=== PATIENT | male | born 1960 | race Caucasian/White ===

== ENCOUNTER 2024-01-10 15:11 | Inpatient (IN) | payer OTHER, SELFPAY ==
[2024-01-10] VITALS (10 sets, daily range): BP systolic 110–155; BP diastolic 63–84; PULSE 88–125; RESP 12–20; TEMP 36.7–38.2; O2SAT 88–97; BMI 47.4
--- NOTE | ~2024-01-10 | CT_ITS ---
EXAMINATION: CT ABDOMEN AND PELVIS WITHOUT CONTRAST CLINICAL INFORMATION: Right upper quadrant pain, fever and jaundice. COMPARISON: None available. TECHNIQUE: Multidetector volumetric imaging was performed from the superior aspect of the liver through the pubic symphysis. Sagittal and coronal reformatted images were obtained on the technologist's workstation. This CT examination was performed using dose optimization techniques as appropriate, variously including the following: *Automated exposure control *Adjustment of mA and/or kV according to patient size (this includes techniques or standardized protocols for targeted exams where dose is matched to indication/reason for exam; i.e. extremities or head) *Use of iterative reconstruction technique DLP: 1337 mGy-cm FINDINGS: LUNG BASES: The visualized lung bases are unremarkable. LIVER, GALLBLADDER, AND BILIARY TREE: The liver is normal in size, shape, and attenuation. No focal hepatic lesion or biliary ductal dilatation is present. The gallbladder contains a single 4 mm stone. The common bile duct is mildly prominent in size measuring about 0.9 cm. In the second portion of the duodenum, there is a small rounded calcification seen measuring 4 mm in size which is identical to the gallbladder calculus. It is possible that this could be within the papilla of Vater which is possibly edematous and projects into the duodenum. Alternatively, this could be a gallstone which has just passed through the papilla of Vater. PANCREAS: There is subtle stranding around the pancreas (2:35). This suggests subtle pancreatitis which could have been associated with the above-mentioned possible distal ampullary stone. No pancreatic masses or drainable fluid collections are seen. SPLEEN: Spleen is enlarged at 13.6 cm. ADRENAL GLANDS: Unremarkable. KIDNEYS AND URETERS: The kidneys are normal in size, shape, and attenuation. No hydronephrosis, hydroureter, or calculi seen. No perinephric stranding. BLADDER: Unremarkable. GASTROINTESTINAL TRACT: The small and large bowel are unremarkable. The appendix is unremarkable. ABDOMINAL WALL: No significant hernia is appreciated. Small periumbilical hernia seen containing only fat. LYMPH NODES: No retroperitoneal lymphadenopathy. VASCULAR: Unremarkable. PELVIC VISCERA: The prostate and seminal vesicles are unremarkable. OSSEOUS STRUCTURES: Degenerative changes are present in the spine, most marked at L3-L4 and L5-S1. CT/CT abdomen pelvis wo IV con IMPRESSION: 1. Cholelithiasis with single 4 mm gallstone with mild dilatation of the common bile duct. 2. There is a 4 mm calcification in the second portion of the duodenum which is identical to the gallbladder calculus. It is possible that this could be within the papilla of Vater which could be edematous, projecting into the duodenum. Alternatively, this could be a gallstone which has just passed through the papilla of Vater. 3. There is subtle stranding around the pancreas suggesting subtle pancreatitis which could have been associated with the above-mentioned possible ampullary stone. 4. Other incidental findings as described above. Fleischner guidelines were followed.
--- NOTE | ~2024-01-10 | XR_ITS ---
EXAMINATION: XR CHEST CLINICAL INFORMATION: Chest pain. COMPARISON: None available. TECHNIQUE: Frontal view of the chest was obtained. FINDINGS: The cardiac silhouette is normal in size. There is a very subtle right lower lobe opacity. Developing pneumonia cannot be excluded. The left lung is clear. There is no pleural effusion. No pneumothorax. No acute osseous abnormality. XR/XR chest 1V IMPRESSION: There is a very subtle right lower lobe opacity for which developing pneumonia is not excluded.
--- NOTE | ~2024-01-10 | US_ITS ---
EXAMINATION: US ABDOMEN LIMITED CLINICAL INFORMATION: Increased LFT. COMPARISON: None available. TECHNIQUE: Real-time imaging of the right upper quadrant abdominal viscera. FINDINGS: PANCREAS: Pancreas not well visualized obscured by bowel gas. LIVER: Increased echogenicity of the liver parenchyma, this can be seen in the setting of hepatic steatosis or liver parenchymal disease. The liver is normal in size. The liver contour is normal. No focal hepatic lesion. There is no intrahepatic biliary duct dilatation seen. GALLBLADDER: Gallbladder is distended there is thickening of the gallbladder wall measuring up to 5 mm, there is a stone lodged in the gallbladder neck 7 mm. Combined with tenderness pressing on the gallbladder raising suspicion for acute cholecystitis. COMMON BILE DUCT: Dilated in caliber measuring 1.270 cm in diameter. RIGHT KIDNEY: Normal. No hydronephrosis. No renal calculi or focal parenchymal lesions. The kidney measures 12.2 cm in maximum dimension. FREE FLUID: None. US/US abdomen limited IMPRESSION: 1. Distended gallbladder, there is gallbladder wall thickening and a 7 mm stone lodged in the gallbladder neck concerning for ACUTE CHOLECYSTITIS. 2. Dilated common bile duct measuring up to 1.2 cm. 3. Pancreas not well visualized obscured by bowel gas. 4. Increased echogenicity of the liver parenchyma, this can be seen in the setting of hepatic steatosis or liver parenchymal disease. (Referring physician staff is being called, by physician staff assistance, to be alerted of the above critical findings and recommendations.) 01/11/2024 4:12 PM MAURICE
--- NOTE | 2024-01-10 15:39 | ECG_ITS ---
Test Reason : CP Blood Pressure : / mmHG Vent. Rate : 120 BPM Atrial Rate : 120 BPM P-R Int : 156 ms QRS Dur : 078 ms QT Int : 314 ms P-R-T Axes : 007 -27 007 degrees QTc Int : 443 ms Sinus tachycardia Inferior infarct , age undetermined Abnormal ECG No previous ECGs available Referred By: Jesusita Alatorre Electronically Signed By:Jaziel Peters
[2024-01-10] MEDS: 0.9 % Sodium Chloride 1,000 ML 999 ML IVCONT ×2 (15:53→17:57)
[2024-01-10 16:06] LABS: Hematocrit 45.2 % (42.0-52.0); Hemoglobin 15.3 g/dl (14.0-18.0); Mean Corpuscular HGB Conc 33.8 g/dl (31.0-36.0); Mean Corpuscular Hemoglobin 29.9 pg (27.0-33.0); Mean Corpuscular Volume 88.5 fL (80.0-98.0); Mean Platelet Volume 9.2 fL (9.4-12.4); Platelet Count 192 X10*3/uL (160-400); Red Blood Count 5.11 X10*6/uL (4.60-5.80); Red Cell Distribution Width 14.4 % (11.0-16.0)
[2024-01-10 16:12] LABS: INTERNATIONAL NORM RATIO 1.1 (0.9-1.1); Prothrombin Time 13.9 SEC (11.1-13.3)
--- NOTE | 2024-01-10 16:12 | ED.ABDPAIN ---
HPI - Abdominal Pain General Chief Complaint: Abdominal Pain Stated Complaint: CP x4 days, twisting of stomach and L back pain Time Seen by Provider: 01/10/24 15:57 Source: patient, EMS and old records reviewed Mode of arrival: EMS Limitations: no limitations History of Present Illness ED Provider: TOPHER HPI narrative: 63 yo male with PMH of HTN, resting tremors, HLD, obesity reports Saturday had n/v in the middle of the night has had worsening RUQ and R kidney pain as well. He notes since then one episode of diarrhea, worsening pain, not able to eat or drink and pain localized to RUQ. He does not know if he has issues with his gallbladder was not aware he had yellow tinge to his eyes. [facility] MD elicited complaint: abdominal pain Pertinent past history: none Onset (ago): day(s) (Saturday ) Pain Consistency: constant Location: RUQ Severity: severe Quality: stabbing Radiation: none Migration to: R flank Exacerbating factors: eating and movement Relieving factors: nothing Associated symptoms: nausea, vomiting, diarrhea, fever and chills Related Data Allergies Allergy/AdvReac Type Severity Reaction Status Date / Time Penicillins Allergy Severe Anaphylaxis Verified 01/10/24 15:39 Review of Systems Review of Systems Constitutional : No Weight loss, pos Fever, pos Chills ENT/Mouth : No sore throat, No Rhinorrhea Eyes: No Swelling, No Redness Cardiovascular : No Chest Pain, No SOB, NoEdema Respiratory : No Cough, No Sputum, No Wheezing Gastrointestinal : Positive Nausea, Positive Vomiting, positive Diarrhea, positive abdominal Pain, No Hematochezia, No Melena Genitourinary : No Dysuria, No Urinary Frequency, No Hematuria, No Urgency Musculoskeletal : No joint pain, No Myalgias, No Joint Swelling Skin : No Skin Lesions, No rash Neuro : No Weakness, No Numbness, No Dizziness, No Headache Psych : No Anxiety/Panic, No Depression All other systems reviewed and are negative. [facility] Past Medical History Attestation statement: The following information was validated with the patient. Source: old records reviewed Medical History Occasional tremors Hyperlipidemia Obesity HTN (hypertension) Social History Social History Smoked in Last 30 Days: Yes Use of substances other than those prescribed or required for medical reasons: No Advance Directives: No Advance Directives Information Provided: No Physical Exam ED Vital Signs: Vital Signs - 24 hr 01/10/24 15:38 01/10/24 16:10 01/10/24 17:42 Temperature 100.8 F H 98.7 F Pulse Rate 125 H 122 H Respiratory Rate 18 20 Blood Pressure 155/84 H 110/63 Pulse Oximetry 94 92 96 Oxygen Delivery Method Room Air Room Air Nasal Cannula Oxygen Flow Rate 2 01/10/24 17:58 01/10/24 19:48 Temperature 98.9 F 98.4 F Pulse Rate 115 H 99 Respiratory Rate 18 19 Blood Pressure 116/65 143/68 H Pulse Oximetry 95 96 Oxygen Delivery Method Nasal Cannula Nasal Cannula Oxygen Flow Rate 2 2 BMI result Body Mass Index 47.4 Appearance: Alert. Oriented X3. in pain mild acute distress. Eyes: Pupils equal, round and reactive to light. scleral icterus ENT: Pharynx dry MM Neck: Normal inspection. Neck supple. CVS: tachycardic heart rate and rhythm. Pulses normal. Respiratory: No respiratory distress. Breath sounds normal. Abdomen: Soft and moderate RUQ ttp with + medellin's sign Skin: Skin warm and dry. Normal skin color. Jaundice Extremities: No lower extremity edema. Neuro: Oriented X 3. No motor deficit. No sensory deficit. Course Course Course Narrative: PATIENT IS OBESE IBW = 64 KG 30CC/KG = 1920 mL bolus 2 L of IVF ordered Reevaluation(s) Reevaluation #1: focused exam for sepsis performed at 843pm Medical Decision Making Medical Decision Making MDM Narrative: 63 yo male with PMH of HTN, resting tremors, HLD, obesity here with RUQ pain, jaundice and fevers at this time concern for cholecystitis, choledocholithiasis, pancreatitis, IVF x 2L, given fever empiric IV levofloxacin and flagyl ordered (reports severe PCN allergy), IV morphine for pain, pending imaging discussion with either GI and surgery/hospitalist. Differential Diagnosis Differential Diagnoses: The differential diagnosis associated with the presentation includes cholecystitis, choledocholithiasis, pancreatitis, Admission/Observation Consideration of admission/observation: Escalation of care including admission/observation considered admit given clinical picture and illness - will need MRC Consult Healthcare Provider Management of the patient was discussed with: Hospitalist (will admit) and Road Machinery Inspector (message sent to Darryl daniels [facility] possibly passed stone) Lab Data MDM Lab Attestation statement: I reviewed the patient's lab results. 01/10/24 15:52 01/10/24 15:52 Labs: Lab Results 01/10/24 01/10/24 01/10/24 Range/Units 15:52 16:03 19:20 WBC 5.0 (4.8-10.8) X10*3/uL RBC 5.11 (4.60-5.80) X10*6/uL Hgb 15.3 (14.0-18.0) g/dl Hct 45.2 (42.0-52.0) % MCV 88.5 (80.0-98.0) fL MCH 29.9 (27.0-33.0) pg MCHC 33.8 (31.0-36.0) g/dl RDW 14.4 (11.0-16.0) % Plt Count 192 (160-400) X10*3/uL MPV 9.2 L (9.4-12.4) fL Immature Gran % (Auto) Cancelled Neut % (Auto) Cancelled Lymph % (Auto) Cancelled [place] % (Auto) Cancelled Eos % (Auto) Cancelled Baso % (Auto) Cancelled Lymph # (Auto) Cancelled [place] # (Auto) Cancelled Eos # (Auto) Cancelled Baso # (Auto) Cancelled Abs Immat Gran (auto) Cancelled Absolute Neuts (auto) Cancelled Absolute Nucleated RBC 0.000 (0.0-0.012) X10*3/uL Nucleated RBC % (auto) 0.0 (0.0-0.2) /100WBC Neutrophils % (Manual) 81 H (45-73) % Band Neutrophils % 13 H (3-5) % Lymphocytes % (Manual) 6 L (20-40) % Abs Neuts (Manual) 4.7 (2.0-8.3) X10*3/uL Lymphocytes # (Manual) 0.3 L (1.2-4.9) X10*3/uL Platelet Estimate NORMAL (NORMAL) Plt Morphology Comment NORMAL RBC Morphology NOTED Qing Cells 1+ (0-2) /OIF Smear Tech's Comments MANUAL DIFF PT 13.9 H (11.1-13.3) SEC INR 1.1 (0.9-1.1) Sodium 138 (135-145) mmol/L Potassium 3.7 (3.3-5.1) mmol/L Chloride 98 (96-108) mmol/L Carbon Dioxide 26 (22-29) mmol/L Anion Gap 18 (12-20) BUN 23 H (9-16) mg/dL Creatinine 1.81 H (0.5-1.4) mg/dL Estim Creat Clear Calc 55.4 Estimated GFR 38 Random Glucose 111 (60-115) mg/dL Lactic Acid 4.3 H* (0.5-2.0) mmol/L Lactic Acid F/U @ 2Hr 0.9 (0.5-2.0) mmol/L Calcium 9.1 (8.4-10.2) mg/dL Magnesium 2.1 (1.6-2.6) mg/dL Total Bilirubin 7.0 H (0.0-1.0) mg/dL Direct Bilirubin 5.5 H (0.0-0.5) mg/dL AST 92 H (5-37) U/L ALT 218 H (0-40) U/L Alkaline Phosphatase 107 (39-117) U/L Total Creatine Kinase 686 H (38-174) U/L Troponin I High Sens 6.0 (<3.5-35.0) ng/L Total Protein 7.2 (6.5-8.0) g/dL Albumin 4.0 (3.5-5.0) g/dL Lipase 1156 H (8-78) U/L Procalcitonin 5.14 ng/mL Influenza Type A (PCR) NEGATIVE (Negative) Influenza Type B (PCR) NEGATIVE (Negative) RSV RNA Qual (PCR) NEGATIVE (Negative) SARS-CoV-2 RNA (RT-PCR) NEGATIVE (Negative) Independent Interpretation I performed an independent interpretation of an: EKG, Plain X-Ray (?RLL opacity) and CT Scan (gallstones, pancreatitis) Interpretation: Rate: 120 Rhythm: sinus tach Dillard: left Normal P waves. Normal MANUEL. Normal QRS complex. ST T wave : no KAT, old inf infarct qTC: 443 prior studies: no acute ischemia The study has been interpreted contemporaneously by me. . Radiology Impression Discussion of test interpretation with radiology: I have reviewed the radiologist's reading. Independent Historian Clinical information obtained from an independent historian. History obtained from or confirmed by: EMS Medications Administered Discontinued Medications Generic Name Dose Route Start Last Admin Trade Name Paige PRN Reason Stop Dose Admin Acetaminophen 650 mg 01/10/24 15:55 01/10/24 16:17 Acetaminophen 325 Mg Tablet PO 01/10/24 15:56 650 mg ONCE ONE Administration Sodium Chloride 1,000 mls @ 999 mls/hr 01/10/24 15:45 01/10/24 17:57 Ns IVCONT 01/10/24 17:45 999 mls/hr .Q1H1M KAREN Administration Levofloxacin 750 mg in 150 mls @ 100 mls/hr 01/10/24 15:38 01/10/24 17:57 Levaquin IV 01/10/24 17:07 Infused ONCE ONE Infusion Metronidazole 500 mg in 100 mls @ 100 mls/hr 01/10/24 16:30 01/10/24 17:57 Flagyl IV 01/10/24 17:29 Infused ONCE ONE Infusion Morphine Sulfate 4 mg 01/10/24 15:38 01/10/24 16:17 Morphine Sulfate 4 Mg/Ml Cartridge IVPUSH 01/10/24 15:39 4 mg ONCE ONE Administration Protocol Ondansetron HCl 4 mg 01/10/24 15:38 01/10/24 16:17 Ondansetron Hcl 4 Mg/2 Ml Vial IVPUSH 01/10/24 15:39 4 mg ONCE ONE Administration Critical Care Time Critical Care Time Critical Care Time: Yes Total Critical Care Time: 60 Attestation: sepsis protocol, 2L of IVF, resuscitation, repeat labs, consult, IV morphine x 2 with improvement in pain, admission I attest to this time spent taking care of the patient Discharge Plan Discharge Clinical Impression: Biliary colic, Acute cholecystitis, Acidosis, lactic, Bandemia, SOFIYA (acute kidney injury) Acute pancreatitis Qualifiers: Pancreatitis type: biliary Acute pancreatitis complication: no infection or necrosis Qualified Code(s): K85.10 - Biliary acute pancreatitis without necrosis or infection Patient Disposition: Admitted As Inpatient
[2024-01-10] MEDS: levoFLOXacin/D5W 750 MG/150 ML PIGGYBACK 100 MG IV ×2 (16:16→20:49)
[2024-01-10] MEDS: Morphine Sulfate 4 MG/ML CARTRIDGE IVPUSH ×2 (16:17→20:48)
[2024-01-10] MEDS: ondansetron HCL 4 MG/2 ML VIAL IVPUSH (16:17)
[2024-01-10] MEDS: Acetaminophen 325 MG TABLET 650 MG PO (16:17)
[2024-01-10 16:21] LABS: Lactic Acid 4.3 mmol/L (0.5-2.0)
[2024-01-10 16:31] LABS: Alanine Aminotransferase 218 U/L (0-40); Alkaline Phosphatase 107 U/L (39-117); Anion Gap 18 (12-20); Aspartate Amino Transferase 92 U/L (5-37); Bilirubin Direct 5.5 mg/dL (0.0-0.5); Blood Urea Nitrogen 23 mg/dL (9-16); Calcium 9.1 mg/dL (8.4-10.2); Carbon Dioxide 26 mmol/L (22-29); Chloride 98 mmol/L (96-108); Creatinine Clr Calc Pharmacy 55.4; Estimated Glomerular Filt Rate 38; Glucose Random 111 mg/dL (60-115); Lipase 1156 U/L (8-78); Magnesium 2.1 mg/dL (1.6-2.6); Potassium 3.7 mmol/L (3.3-5.1); Sodium 138 mmol/L (135-145); Total Protein 7.2 g/dL (6.5-8.0)
[2024-01-10 16:51] LABS: Influenza A PCR NEGATIVE (Negative); Influenza B PCR NEGATIVE (Negative); Resp Syncy Virus RNA Qual PCR NEGATIVE (Negative); SARS COV2 PCR INHOUSE NEGATIVE (Negative)
[2024-01-10] MEDS: metroNIDAZOLE/NS 500 MG/100 ML PIGGYBACK 100 MG IV ×2 (16:51→21:01)
[2024-01-10 17:06] LABS: SLIDE REVIEW MANUAL DIFF
[2024-01-10 17:13] LABS: Neutrophils Percent Manual 81 % (45-73)
[2024-01-10 17:16] LABS: Band Neutrophils Percent 13 % (3-5); Burr Cells 1+ (0-2) /OIF; Lymphocytes Absolute Manual 0.3 X10*3/uL (1.2-4.9); Lymphocytes Percent Manual 6 % (20-40); Neutrophils Absolute Manual 4.7 X10*3/uL (2.0-8.3)
[2024-01-10 17:21] LABS: Platelet Estimate NORMAL (NORMAL); Platelet Morphology Comment NORMAL; RBC Morphology NOTED
--- NOTE | 2024-01-10 17:41 | PC.NURSE ---
88% on RA while sleeping, placed on 2 liters sating 96%
[2024-01-10 17:57] LABS: Reflex Lactate? Lactic Acid Added
[2024-01-10 19:12] LABS: Procalcitonin 5.14 ng/mL
[2024-01-10 19:39] LABS: ~Lactic Acid-LAB USE ONLY 0.9 mmol/L (0.5-2.0)
--- NOTE | 2024-01-10 20:27 | P.HPHOSP_ITS ---
History of Present Illness Date of Service: 01/10/24 Chief Complaint: Abdominal Pain This is a 63-year-old male with pertinent history of hypertension, mixed hyperlipidemia, essential tremor, mood disorder, obesity who presents to the emergency department for evaluation of right upper quadrant pain. Patient states upper right-sided pain began 2 days prior to presentation in the middle of the night. He had an episode of nausea and nonbloody emesis along with it. This pain was initially intermittent but now is constant, nonradiating and without any relieving factors. He has not able to tolerate any p.o. intake. Also had 1 episode of nonbloody diarrhea. No similar issue or history of gallbladder problems in the past. Has subjective fever and chills. Chest discomfort, palpitations, shortness of breath, changes in urinary habits. In the emergency department, lipase found to be elevated and imaging concerning for acute pancreatitis. Also noted to have gallstones with biliary ductal dilatation. Transaminases found to be elevated and bilirubin 7. Patient was initiated on empiric IV antibiotics in the ER. Review of Systems 2 Constitutional: Constitutional: Reports chills, Reports fever(s), Reports malaise, Reports poor appetite and Reports weakness Cardiovascular: Cardiovascular: Reports no additional cardiovascular complaints Respiratory: Respiratory: Reports no additional respiratory complaints Gastrointestinal: Gastrointestinal: Reports abdominal pain, Reports nausea and Reports vomiting Genitourinary: Genitourinary: Reports no additional male genitourinary complaints Neurologic: Reports weakness [facility] Medical History Occasional tremors Hyperlipidemia Obesity HTN (hypertension) Pertinent family history: No family history of early CAD Social History Patient Tobacco Use Status: Current everyday Tobacco user Smoked in Last 30 Days: Yes Use of substances other than those prescribed or required for medical reasons: No Advance Directives: No Advance Directives Information Provided: No Nutrition Risks: No Nutritional Risk Meds Allergies Allergy/AdvReac Type Severity Reaction Status Date / Time Penicillins Allergy Severe Anaphylaxis Verified 01/10/24 15:39 Physical Exam 2 Vital Signs and Narrative: Vital Signs: Last Vital Signs Temp 98.4 F 01/10/24 19:48 Pulse 99 01/10/24 19:48 Resp 19 01/10/24 19:48 BP 143/68 H 01/10/24 19:48 Pulse Ox 96 01/10/24 19:48 O2 Del Method Nasal Cannula 01/10/24 19:48 O2 Flow Rate 2 01/10/24 19:48 BMI result Body Mass Index 47.4 Middle-aged male lying in bed in mild distress Neck supple, no JVD Regular rate and rhythm, S1-S2 heard Regular breath sounds bilaterally, no wheezing or crackles appreciated Abdomen with epigastric and right upper quadrant tenderness, mild guarding, no rigidity, no rebound tenderness Patient is awake, alert and oriented to self, place, time and person ; no focal motor deficit Psych: Normal mood No pedal edema Results Labs 01/10/24 15:52 01/10/24 15:52 Labs: Laboratory Results - last 24 hr 01/10/24 01/10/24 01/10/24 15:52 16:03 19:20 MCV 88.5 MCH 29.9 MCHC 33.8 RDW 14.4 Plt Count 192 MPV 9.2 L Immature Gran % (Auto) Cancelled Neut % (Auto) Cancelled Lymph % (Auto) Cancelled [place] % (Auto) Cancelled Eos % (Auto) Cancelled Baso % (Auto) Cancelled Lymph # (Auto) Cancelled [place] # (Auto) Cancelled Eos # (Auto) Cancelled Baso # (Auto) Cancelled Abs Immat Gran (auto) Cancelled Absolute Neuts (auto) Cancelled Absolute Nucleated RBC 0.000 Nucleated RBC % (auto) 0.0 Neutrophils % (Manual) 81 H Band Neutrophils % 13 H Lymphocytes % (Manual) 6 L Abs Neuts (Manual) 4.7 Lymphocytes # (Manual) 0.3 L Platelet Estimate NORMAL Plt Morphology Comment NORMAL RBC Morphology NOTED Qing Cells 1+ (0-2) Smear Tech's Comments MANUAL DIFF PT 13.9 H INR 1.1 Anion Gap 18 Estim Creat Clear Calc 55.4 Estimated GFR 38 Random Glucose 111 Lactic Acid 4.3 H* Lactic Acid F/U @ 2Hr 0.9 Calcium 9.1 Magnesium 2.1 Total Bilirubin 7.0 H Direct Bilirubin 5.5 H AST 92 H ALT 218 H Alkaline Phosphatase 107 Total Creatine Kinase 686 H Troponin I High Sens 6.0 Total Protein 7.2 Albumin 4.0 Lipase 1156 H Procalcitonin 5.14 Influenza Type A (PCR) NEGATIVE Influenza Type B (PCR) NEGATIVE RSV RNA Qual (PCR) NEGATIVE SARS-CoV-2 RNA (RT-PCR) NEGATIVE Imaging Radiologist's Impressions: Impressions Chest X-Ray 01/10/24 16:07 IMPRESSION: There is a very subtle right lower lobe opacity for which developing pneumonia is not excluded. Abdomen/Pelvis CT 01/10/24 17:23 IMPRESSION: 1. Cholelithiasis with single 4 mm gallstone with mild dilatation of the common bile duct. 2. There is a 4 mm calcification in the second portion of the duodenum which is identical to the gallbladder calculus. It is possible that this could be within the papilla of Vater which could be edematous, projecting into the duodenum. Alternatively, this could be a gallstone which has just passed through the papilla of Vater. 3. There is subtle stranding around the pancreas suggesting subtle pancreatitis which could have been associated with the above-mentioned possible ampullary stone. 4. Other incidental findings as described above. Fleischner guidelines were followed. Assessment and Plan (1) Acute pancreatitis: Qualifiers: Acute pancreatitis complication: no infection or necrosis Pancreatitis type: biliary Qualified Code(s): K85.10 - Biliary acute pancreatitis without necrosis or infection Status: Acute (2) Cholangitis: Status: Acute Plan This is a 63-year-old male with pertinent history of hypertension, mixed hyperlipidemia, essential tremor, mood disorder, obesity who presents to the emergency department for evaluation of right upper quadrant pain. #. Sepsis due to gallstone pancreatitis with acute cholangitis: Initiating empiric IV antibiotics. Continue IV crystalloid resuscitation. NPO for bowel rest. Will obtain MRCP. Consulting Gastroenterology and General surgery. IV opioids p.r.n. for analgesia. Lactic acid and blood culture obtained #. Elevated transaminases and obstructive jaundice due to above #. Elevated creatinine: Unknown baseline. SOFIYA versus CKD. Monitor creatinine with crystalloid resuscitation. Avoid nephrotoxins #. Acute lactic acidosis due to sepsis #. Hypertension: Hold antihypertensives in the setting of sepsis #. Mixed hyperlipidemia: Hold statin #. Essential tremor: Propranolol once able to take p.o. #. Mood disorder: Continue home mood stabilizers once able #. Obesity: Counseled regarding diet and exercise Med rec pending DVT prophylaxis: Mechanical Full code Admit as inpatient and will require two night minimum hospital stay for IV antibiotics (as above), which is not possible in a lesser acute setting. Specialist consult pending Quality Stroke Does the patient have a stroke diagnosis?: No VTE Prior VTE?: No VTE Risk Level:: Medical - moderate - high VTE Device Contraindication: N/A - Device Ordered VTE Drug Contraindication: Treatment Not Indicated
[2024-01-10] MEDS: Lactated Ringers 1,000 ML 150 ML IVCONT (20:49)
[2024-01-11] VITALS (7 sets, daily range): BP systolic 99–155; BP diastolic 61–97; PULSE 76–86; RESP 14–20; TEMP 36.5–37.1; O2SAT 96–99; BMI 47.4
[2024-01-11 01:11] LABS: Appearance Urine Cloudy; Color Urine Dark Yellow; Glucose Urine UA Negative (Negative); Leukocyte Esterase Urine Trace (Negative); Nitrite Urine Positive (Negative); PH 5.5 (5.0-9.0); Specific Gravity - Urine 1.025 (1.005-1.025); UMIC TRIGGER UACC YES; Urine Blood Negative (Negative); Urine Ketones Trace mg/dL (Negative); Urine Protein 30 (1+) mg/dL (Neg-Trace)
[2024-01-11 01:25] LABS: Bacteria Urine None Seen (None Seen); Calcium Oxalate Crystals Urine Present; Hyaline Casts Urine 0-2 /LPF (0-2); UACC Culture Trigger YES; WBC Urine 0-5 /HPF (0-5)
--- NOTE | 2024-01-11 02:39 | PC.NURSE ---
Pt resting at the bedside. No apparent distress noted. Denies pain at this time. Monitoring is ongoing.
[2024-01-11] MEDS: Lactated Ringers 1,000 ML 150 ML IVCONT ×3 (03:42→18:36)
[2024-01-11] MEDS: metroNIDAZOLE/NS 500 MG/100 ML PIGGYBACK 100 MG IV ×3 (03:43→22:05)
[2024-01-11 06:55] LABS: MANUAL DIFF FLAG NO
[2024-01-11 06:57] LABS: Basophils Percent Auto 0.3 % (0-2); Eosinophils Absolute Auto 0.1 X10*3/uL (0.0-0.4); Eosinophils Percent Auto 1.7 % (0-4); Hematocrit 37.2 % (42.0-52.0); Hemoglobin 12.5 g/dl (14.0-18.0); Imm Gran Abs Auto 0.02 X10*3/uL (0.00-0.03); Imm Gran Pct Auto 0.3 % (0.0-0.4); Lymphocytes Absolute Auto 0.4 X10*3/uL (1.2-4.9); Lymphocytes Percent Auto 6.9 % (20-40); Mean Corpuscular HGB Conc 33.6 g/dl (31.0-36.0); Mean Corpuscular Hemoglobin 29.8 pg (27.0-33.0); Mean Corpuscular Volume 88.8 fL (80.0-98.0); Mean Platelet Volume 9.4 fL (9.4-12.4); Monocytes Absolute Auto 0.4 X10*3/uL (0.1-1.2); Monocytes Percent Auto 6.5 % (2-11); Neutrophils Absolute Auto 5.3 x10*3/uL (2.0-8.3); Neutrophils Percent Auto 84.3 % (45-73); Platelet Count 155 X10*3/uL (160-400); Red Blood Count 4.19 X10*6/uL (4.60-5.80); Red Cell Distribution Width 14.5 % (11.0-16.0); White Blood Count 6.3 X10*3/uL (4.8-10.8)
[2024-01-11 07:15] LABS: Anion Gap 13 (12-20); Blood Urea Nitrogen 16 mg/dL (9-16); Carbon Dioxide 25 mmol/L (22-29); Chloride 103 mmol/L (96-108); Estimated Glomerular Filt Rate > 60; Glucose Random 92 mg/dL (60-115); Potassium 4.2 mmol/L (3.3-5.1); Sodium 137 mmol/L (135-145)
--- NOTE | 2024-01-11 07:29 | P.PNIM_ITS ---
Subjective Subjective Date of Service: 01/11/24 Interval History: Seen in follow up for gallstone pancreatitis with sepsis and acute cholangitis Interval history: Feels slightly better. No further nausea/vomiting. Mild diffuse abd pain. Afebrile Review of Systems Review of Systems: Yes all other systems are reviewed and are negative Physical Exam 2 Vital Signs: Vital Signs: Last Vital Signs Temp 97.7 F 01/11/24 06:37 Pulse 81 01/11/24 06:37 Resp 17 01/11/24 06:37 BP 105/71 01/11/24 06:37 Pulse Ox 99 01/11/24 06:37 O2 Del Method Room Air 01/11/24 06:37 O2 Flow Rate 2 01/11/24 03:42 BMI result Body Mass Index 47.4 Constitutional - Awake and Alert, No apparent distress Eyes - PERRLA, EOMI Cardiovascular - S1S2, RRR, No edema Respiratory - Normal lung expansion, Normal respiratory effort, No respiratory distress, CTA bilaterally Gastrointestinal - obese abdomen. Diffuse ttp without guarding or rebound, negative medellin sign. ND; +BS Extremities - no calf tenderness bilaterally, no swelling Skin - Warm/Dry Neurological - Alert & oriented x3 Psychological - Appropriate affect Objective Data Active Medications Acetaminophen (Acetaminophen 325 Mg Tablet) 650 mg PO Q6H PRN PRN Reason: Pain, Mild (Pain Scale 1-3) Acetaminophen (Acetaminophen Supp 650 Mg Supp.Rect) 650 mg [place] Q6H PRN PRN Reason: Pain, Mild (Pain Scale 1-3) Lactated Ringer's (Lr) 1,000 mls @ 150 mls/hr IVCONT .Q6H40M [facility] Last Admin: 01/11/24 03:42 Dose: 150 mls/hr Documented By: IZABEL Levofloxacin (Levaquin) 750 mg in 150 mls @ 100 mls/hr IV Q24H [facility] Last Infusion: 01/10/24 22:19 Dose: Infused Documented By: IZABEL Metronidazole (Flagyl) 500 mg in 100 mls @ 100 mls/hr IV Q8H [facility] Last Infusion: 01/11/24 04:43 Dose: Infused Documented By: IZABEL Melatonin (Melatonin 3 Mg Tablet) 6 mg PO BEDTIME PRN PRN Reason: Insomnia Morphine Sulfate (Morphine Sulfate 4 Mg/Ml Cartridge) 4 mg IVPUSH Q4H PRN; Protocol PRN Reason: Pain, Severe (Pain Scale 7-10) Last Admin: 01/10/24 20:48 Dose: 4 mg Documented By: IZABEL Ondansetron HCl (Ondansetron Hcl 4 Mg/2 Ml Vial) 4 mg IVPUSH Q8H PRN PRN Reason: Nausea and Vomiting Sodium Chloride (0.9 % Sodium Chloride Flush 3 Ml Syringe) 3 ml IVFLUSH QSHIFT [facility] Last Admin: 01/11/24 00:32 Dose: Not Given Documented By: IZABEL Non-Admin Reason: IV Running Labs 01/11/24 06:19 01/11/24 06:19 Labs: Laboratory Results - last 24 hr 01/10/24 01/10/24 01/10/24 15:52 16:03 19:20 MCV 88.5 MCH 29.9 MCHC 33.8 RDW 14.4 Plt Count 192 MPV 9.2 L Immature Gran % (Auto) Cancelled Neut % (Auto) Cancelled Lymph % (Auto) Cancelled [place] % (Auto) Cancelled Eos % (Auto) Cancelled Baso % (Auto) Cancelled Lymph # (Auto) Cancelled [place] # (Auto) Cancelled Eos # (Auto) Cancelled Baso # (Auto) Cancelled Abs Immat Gran (auto) Cancelled Absolute Neuts (auto) Cancelled Absolute Nucleated RBC 0.000 Nucleated RBC % (auto) 0.0 Neutrophils % (Manual) 81 H Band Neutrophils % 13 H Lymphocytes % (Manual) 6 L Abs Neuts (Manual) 4.7 Lymphocytes # (Manual) 0.3 L Platelet Estimate NORMAL Plt Morphology Comment NORMAL RBC Morphology NOTED Qing Cells 1+ (0-2) Smear Tech's Comments MANUAL DIFF PT 13.9 H INR 1.1 Anion Gap 18 Estim Creat Clear Calc 55.4 Estimated GFR 38 Random Glucose 111 Lactic Acid 4.3 H* Lactic Acid F/U @ 2Hr 0.9 Calcium 9.1 Magnesium 2.1 Total Bilirubin 7.0 H Direct Bilirubin 5.5 H AST 92 H ALT 218 H Alkaline Phosphatase 107 Total Creatine Kinase 686 H Troponin I High Sens 6.0 Total Protein 7.2 Albumin 4.0 Lipase 1156 H Procalcitonin 5.14 Urine Color Urine Appearance Urine pH Ur Specific [place] Urine Protein Urine Glucose (UA) Urine Ketones Urine Blood Urine Nitrite Ur Leukocyte Esterase Urine RBC Urine WBC Ur Squamous Epith Cells Calcium Oxalate Crystal Urine Bacteria Hyaline Casts Influenza Type A (PCR) NEGATIVE Influenza Type B (PCR) NEGATIVE RSV RNA Qual (PCR) NEGATIVE SARS-CoV-2 RNA (RT-PCR) NEGATIVE 01/11/24 01/11/24 01:07 06:19 MCV 88.8 MCH 29.8 MCHC 33.6 RDW 14.5 Plt Count 155 L MPV 9.4 Immature Gran % (Auto) 0.3 Neut % (Auto) 84.3 H Lymph % (Auto) 6.9 L [place] % (Auto) 6.5 Eos % (Auto) 1.7 Baso % (Auto) 0.3 Lymph # (Auto) 0.4 L [place] # (Auto) 0.4 Eos # (Auto) 0.1 Baso # (Auto) 0.0 Abs Immat Gran (auto) 0.02 Absolute Neuts (auto) 5.3 Absolute Nucleated RBC 0.000 Nucleated RBC % (auto) 0.0 Neutrophils % (Manual) Band Neutrophils % Lymphocytes % (Manual) Abs Neuts (Manual) Lymphocytes # (Manual) Platelet Estimate Plt Morphology Comment RBC Morphology [place] Cells Smear Tech's Comments PT INR Anion Gap 13 Estim Creat Clear Calc 83.0 Estimated GFR > 60 Random Glucose 92 Lactic Acid Lactic Acid F/U @ 2Hr Calcium Magnesium Total Bilirubin Direct Bilirubin AST ALT Alkaline Phosphatase Total Creatine Kinase Troponin I High Sens Total Protein Albumin Lipase Procalcitonin Urine Color Dark Yellow Urine Appearance Cloudy Urine pH 5.5 Ur Specific [place] 1.025 Urine Protein 30 (1+) H Urine Glucose (UA) Negative Urine Ketones Trace Urine Blood Negative Urine Nitrite Positive H Ur Leukocyte Esterase Trace H Urine RBC 3-5 H Urine WBC 0-5 Ur Squamous Epith Cells 3-5 Calcium Oxalate Crystal Present Urine Bacteria None Seen Hyaline Casts 0-2 Influenza Type A (PCR) Influenza Type B (PCR) RSV RNA Qual (PCR) SARS-CoV-2 RNA (RT-PCR) Assessment and Plan (1) Cholangitis: Status: Acute (2) SOFIYA (acute kidney injury): Status: Acute (3) Gallstone pancreatitis: Status: Acute Plan 63-year-old male with pertinent history of hypertension, mixed hyperlipidemia, essential tremor, mood disorder, obesity admitted for further management of gallstone pancreatitis and cholangitis #Sepsis due to gallstone pancreatitis with acute cholangitis -continue IV Levaquin and Flagyl (initiated 01/09) -continue IV LR at 150 mL/hr -unable to perform MRCP due to body habitus. Discussed with Gastroenterology, await General surgery recommendations and obtain RUQ ultrasound -RUQ ultrasound ordered -general surgery consult -pain management p.r.n. with pain scale -Keep NPO for now #Severe sepsis- resolved -Initial lactic acid 4.1 (met at 1552 01/09) and SOFIYA (creat just 1.8) received IVF bolus, normalized to 0.9 #Elevated LFTs with obstructive jaundice -due to above, plan as above #Acute kidney injury -Unknown baseline, but creat 1.81 --> 1.2 -avoid nephrotoxins -continue IVF -follow renal function/lytes #Hypertension -continue amlodipine, propranolol, hydralazine. Hold hydrochlorothiazide and setting of SOFIYA #Mixed hyperlipidemia -hold statin #Essential tremor -continue propranolol #Mood disorder -continue home meds # morbid obesity with BMI greater than 47 -weight loss efforts encouraged DVT prophylaxis- Mechanical Full code Patient requires ongoing inpatient stay for continued IV antibiotics due to cholangitis with severe sepsis and will requiring ongoing IV fluid resuscitation due to gallstone pancreatitis and awaiting expert consultation Quality Stroke Does the patient have a stroke diagnosis?: No VTE Prior VTE?: No VTE Risk Level:: Medical - moderate - high VTE Device Contraindication: N/A - Device Ordered VTE Drug Contraindication: Treatment Not Indicated
[2024-01-11 07:31] LABS: Calcium 8.3 mg/dL (8.4-10.2)
[2024-01-11 07:49] LABS: Alanine Aminotransferase 141 U/L (0-40); Albumin Level 3.2 g/dL (3.5-5.0); Alkaline Phosphatase 81 U/L (39-117); Aspartate Amino Transferase 50 U/L (5-37); Bilirubin Direct 4.3 mg/dL (0.0-0.5); Bilirubin Total 5.2 mg/dL (0.0-1.0); Total Protein 5.7 g/dL (6.5-8.0)
[2024-01-11] MEDS: Morphine Sulfate 4 MG/ML CARTRIDGE IVPUSH (08:02)
[2024-01-11] MEDS: ondansetron HCL 4 MG/2 ML VIAL IVPUSH (08:02)
--- NOTE | 2024-01-11 08:08 | PHA.MEDREC ---
Pharmacy Consult ? Medication Reconciliation Pharmacy has completed the medication reconciliation. Med rec complete, spoke to [employer] [facility] for [facility] who gave me list of recently filled medications and went over this list with patient. Patient states it has been a few days without his medications because he has been sick and they have not been staying down.
[2024-01-11] MEDS: Cyanocobalamin (Vitamin B-12) 1,000 MCG TABLET 1000 MCG PO (10:31)
[2024-01-11] MEDS: Sertraline HCL 50 MG TABLET 150 MG PO (10:31)
[2024-01-11] MEDS: Cholecalciferol (Vitamin D3) 25 MCG TABLET PO (10:31)
[2024-01-11] MEDS: Atorvastatin Calcium 40 MG TABLET PO (10:31)
[2024-01-11] MEDS: amLODIPine Besylate 10 MG TABLET PO (10:31)
--- NOTE | 2024-01-11 10:42 | PC.NURSE ---
per Martha holloway for pt to go for MRCP off cardiac monitoring and off IV fluids.
--- NOTE | 2024-01-11 10:50 | PC.NURSE ---
pt off unit at this time to go to MRCP scan
[2024-01-11] MEDS: Metoclopramide HCl 10 MG/2 ML VIAL IVPUSH (12:55)
--- NOTE | 2024-01-11 14:12 | P.CONGS_ITS ---
History of Present Illness Consult details Consult date: 01/11/24 Narrative: Patient is a 63-year-old male with a significant number of comorbidities who presents with a 2 to three-day history of epigastric/upper abdominal pain. Workup including baseline labs and CT scan and an under read sonogram of the upper abdomen demonstrates cholelithiasis and choledocholithiasis. Patient has no recollection of ever having biliary symptoms in the past. Chart was reviewed and patient evaluated. Normal white count, very marked hyperbilirubinemia and elevated lipase PMFSH Past Medical History Medical History Occasional tremors Hyperlipidemia Obesity HTN (hypertension) Social History Social History Patient Tobacco Use Status: Current everyday Tobacco user Smoked in Last 30 Days: Yes Use of substances other than those prescribed or required for medical reasons: No Advance Directives: No Advance Directives Information Provided: No Nutrition Risks: No Nutritional Risk Meds Allergies Allergy/AdvReac Type Severity Reaction Status Date / Time Penicillins Allergy Severe Anaphylaxis Verified 01/10/24 15:39 Active Medications: Current Medications Acetaminophen (Acetaminophen 325 Mg Tablet) 650 mg PO Q6H PRN PRN Reason: Pain, Mild (Pain Scale 1-3) Acetaminophen (Acetaminophen Supp 650 Mg Supp.Rect) 650 mg [place] Q6H PRN PRN Reason: Pain, Mild (Pain Scale 1-3) Amlodipine Besylate (Amlodipine Besylate 10 Mg Tablet) 10 mg PO DAILY [facility]; Protocol Last Admin: 01/11/24 10:31 Dose: 10 mg Cyanocobalamin (Cyanocobalamin (Vitamin B-12) 1,000 Mcg Tablet) 1,000 mcg PO DAILY [facility] Last Admin: 01/11/24 10:31 Dose: 1,000 mcg Hydralazine HCl (Hydralazine Hcl 10 Mg Tablet) 10 mg PO TID [facility]; Protocol Last Admin: 01/11/24 12:33 Dose: Not Given Lactated Ringer's (Lr) 1,000 mls @ 150 mls/hr IVCONT .Q6H40M [facility] Last Admin: 01/11/24 10:30 Dose: 150 mls/hr Levofloxacin (Levaquin) 750 mg in 150 mls @ 100 mls/hr IV Q24H [facility] Last Infusion: 01/10/24 22:19 Dose: Infused Metronidazole (Flagyl) 500 mg in 100 mls @ 100 mls/hr IV Q8H [facility] Last Admin: 01/11/24 12:55 Dose: 100 mls/hr Melatonin (Melatonin 3 Mg Tablet) 6 mg PO BEDTIME PRN PRN Reason: Insomnia Morphine Sulfate (Morphine Sulfate 4 Mg/Ml Cartridge) 4 mg IVPUSH Q4H PRN; Protocol PRN Reason: Pain, Severe (Pain Scale 7-10) Last Admin: 01/11/24 08:02 Dose: 4 mg Naproxen (Naproxen 250 Mg Tablet) 250 mg PO BID PRN PRN Reason: Pain (Scale Score 4-6) Ondansetron HCl (Ondansetron Hcl 4 Mg/2 Ml Vial) 4 mg IVPUSH Q8H PRN PRN Reason: Nausea and Vomiting Last Admin: 01/11/24 08:02 Dose: 4 mg Propranolol HCl (Propranolol Hcl La 60 Mg Cap.Sa.24h) 60 mg PO DAILY [facility]; Protocol Last Admin: 01/11/24 12:33 Dose: Not Given Sertraline HCl (Sertraline Hcl 50 Mg Tablet) 150 mg PO DAILY [facility] Last Admin: 01/11/24 10:31 Dose: 150 mg Sodium Chloride (0.9 % Sodium Chloride Flush 3 Ml Syringe) [facility] Last Admin: 01/11/24 08:07 Dose: Not Given Trazodone HCl (Trazodone Hcl 50 Mg Tablet) 150 mg PO BEDTIME PRN PRN Reason: Sleep Vitamin D (Cholecalciferol (Vitamin D3) 25 Mcg Tablet) 25 mcg PO DAILY [facility] Last Admin: 01/11/24 10:31 Dose: 25 mcg Home Medications ?Medication ?Instructions ?Recorded ?Confirmed ?Last Taken ?Type amlodipine 10 mg tablet 10 mg PO DAILY 01/11/24 01/11/24 Unknown History atorvastatin 80 mg tablet 40 mg PO DAILY 01/11/24 01/11/24 Unknown History cholecalciferol (vitamin D3) 25 25 mcg PO DAILY 01/11/24 01/11/24 Unknown History mcg (1,000 unit) tablet (Vitamin D3) cyanocobalamin (vitamin B-12) 1,000 mcg PO DAILY 01/11/24 01/11/24 Unknown History 1,000 mcg tablet hydralazine 10 mg tablet 10 mg PO TID 01/11/24 01/11/24 Unknown History hydrochlorothiazide 25 mg tablet 25 mg PO DAILY 01/11/24 01/11/24 Unknown History naproxen 250 mg tablet 250 mg PO BID PRN Pain (Scale 01/11/24 01/11/24 Unknown History Score 4-6) propranolol 60 mg capsule,24 60 mg PO DAILY 01/11/24 01/11/24 Unknown History hr,extended release sertraline 100 mg tablet 150 mg PO DAILY 01/11/24 01/11/24 Unknown History trazodone 100 mg tablet 150 mg PO BEDTIME PRN Sleep 01/11/24 01/11/24 Unknown History Physical Exam 2 Vital Signs: Vital Signs: Last Vital Signs Temp 97.7 F 01/11/24 06:37 Pulse 83 01/11/24 08:00 Resp 17 01/11/24 08:00 BP 155/75 H 01/11/24 08:00 Pulse Ox 96 01/11/24 08:00 O2 Del Method Room Air 01/11/24 08:00 O2 Flow Rate 2 01/11/24 03:42 BMI result Body Mass Index 47.4 Const: Other: Massively corpulent patient GI: Other: Enormous abdomen. Mild epigastric tenderness. No evidence of any guarding, rebound, or rigidity. Results Labs 01/11/24 06:19 01/11/24 06:19 Labs: Abnormal lab results 01/10/24 01/11/24 01/11/24 Range/Units 15:52 01:07 06:19 RBC 4.19 L (4.60-5.80) X10*6/uL Hgb 12.5 L (14.0-18.0) g/dl Hct 37.2 L (42.0-52.0) % Plt Count 155 L (160-400) X10*3/uL MPV 9.2 L (9.4-12.4) fL Neut % (Auto) 84.3 H (45-73) % Lymph % (Auto) 6.9 L (20-40) % Lymph # (Auto) 0.4 L (1.2-4.9) X10*3/uL Neutrophils % (Manual) 81 H (45-73) % Band Neutrophils % 13 H (3-5) % Lymphocytes % (Manual) 6 L (20-40) % Lymphocytes # (Manual) 0.3 L (1.2-4.9) X10*3/uL PT 13.9 H (11.1-13.3) SEC BUN 23 H (9-16) mg/dL Creatinine 1.81 H (0.5-1.4) mg/dL Lactic Acid 4.3 H* (0.5-2.0) mmol/L Calcium 8.3 L D (8.4-10.2) mg/dL Total Bilirubin 7.0 H 5.2 H (0.0-1.0) mg/dL Direct Bilirubin 5.5 H 4.3 H (0.0-0.5) mg/dL AST 92 H 50 H (5-37) U/L ALT 218 H 141 H (0-40) U/L Total Creatine Kinase 686 H (38-174) U/L Total Protein 5.7 L (6.5-8.0) g/dL Albumin 3.2 L (3.5-5.0) g/dL Lipase 1156 H (8-78) U/L Urine Protein 30 (1+) H (Neg-Trace) mg/dL Urine Nitrite Positive H (Negative) Ur Leukocyte Esterase Trace H (Negative) Urine RBC 3-5 H (0-2) /HPF Short CBC 01/10/24 01/11/24 Range/Units 15:52 06:19 WBC 5.0 6.3 (4.8-10.8) X10*3/uL Hgb 15.3 12.5 L (14.0-18.0) g/dl Hct 45.2 37.2 L (42.0-52.0) % Plt Count 192 155 L (160-400) X10*3/uL BMP 01/10/24 01/11/24 15:52 06:19 Sodium 138 137 Potassium 3.7 4.2 Chloride 98 103 Carbon Dioxide 26 25 BUN 23 H 16 Creatinine 1.81 H 1.21 Calcium 9.1 8.3 L D Cardiac Enzymes 01/10/24 Range/Units 15:52 Total Creatine Kinase 686 H (38-174) U/L Liver Function 01/10/24 01/11/24 Range/Units 15:52 06:19 Total Bilirubin 7.0 H 5.2 H (0.0-1.0) mg/dL Direct Bilirubin 5.5 H 4.3 H (0.0-0.5) mg/dL AST 92 H 50 H (5-37) U/L ALT 218 H 141 H (0-40) U/L Alkaline Phosphatase 107 81 (39-117) U/L Albumin 4.0 3.2 L (3.5-5.0) g/dL Urine 01/11/24 Range/Units 01:07 Urine Color Dark Yellow Urine Appearance Cloudy Urine pH 5.5 (5.0-9.0) Ur Specific [place] 1.025 (1.005-1.025) Urine Protein 30 (1+) H (Neg-Trace) mg/dL Urine Glucose (UA) Negative (Negative) mg/dL All other labs normal. Assessment and Plan (1) Gallstone pancreatitis: Status: Acute (2) Cholangitis: Status: Acute (3) Cholelithiasis: Status: Acute Plan Presumptive diagnosis of cholelithiasis, choledocholithiasis, gallstone pancreatitis, and? cholangitis. Patient is undergoing restorative measures. GI consult pending. Once the patient has been fully resuscitated with continued restorative measures with serial labs and exams and laboratory values and abdominal exam improved, consideration for laparoscopic possible open cholecystectomy can be undertaken. To follow . Procedures Date of Service Date of Service: 01/11/24
[2024-01-11] MEDS: hydrALAZINE HCl 10 MG TABLET PO ×2 (16:35→20:25)
[2024-01-11] MEDS: levoFLOXacin/D5W 750 MG/150 ML PIGGYBACK 100 MG IV (20:25)
[2024-01-12] MEDS: Lactated Ringers 1,000 ML 150 ML IVCONT (03:15)
[2024-01-12 03:22] VITALS: BP 126/82; PULSE 88; RESP 20; TEMP 36.3; O2SAT 96
[2024-01-12] MEDS: metroNIDAZOLE/NS 500 MG/100 ML PIGGYBACK 100 MG IV ×2 (04:29→12:58)
--- NOTE | 2024-01-12 05:42 | PM.GICN ---
History of Present Illness Data of Consult Service Date: 01/12/24 Requesting physician: Martha Bailon Primary Care Provider: Unknown Physician HPI Reason for consult: gallstones 63-year-old male with pertinent history of hypertension, mixed hyperlipidemia, essential tremor, mood disorder, obesity who I am seeing for assessment of gallstones patient initially presented with constant non radiating, colicky pain in RUQ 10/10 in severity w/o radiation which began 2 d before presentation. Associated with non bloody emesis, nausea and poor appetite and diarrhea. He felt feverish with chills, denies Chest discomfort, palpitations, shortness of breath, changes in urinary habits. on reflection he may have had similar pains on and off in the past but never as bad Labs: admission; Transaminases found to be elevated and bilirubin 7.--came down to 5 and now 3. (he does say that today the pain is pretty much gone and he feels hungry) Imaging: CT-mild pancreatitis, stone seen in Gb also another possible stone, coronal view looks to be in the duodenum. US- stone impacted GB neck, cbd dilated. patient unable to get MRCP due to weight Review of Systems Review of Systems: Constitutional : No Weight loss, + Fever, + Chills ENT/Mouth : No sore throat, No Rhinorrhea Eyes: No Swelling, No Redness Cardiovascular : No Chest Pain, No SOB, No Edema Respiratory : No Cough, No Sputum, No Wheezing Gastrointestinal : see HPI Genitourinary : NO Dysuria, No Urinary Frequency, No Hematuria, No Urgency Musculoskeletal : + joint pain, No Myalgias, No Joint Swelling Skin : No Skin Lesions, No rash Neuro : No Weakness, No Numbness, No Dizziness, No Headache Psych : No Anxiety/Panic, No Depression Heme/Lymph: No Bruising, No Lymphadenopathy Endocrine : No Polyuria, No Polydipsia All other systems reviewed and are negative. [facility] Past Medical History Medical History Occasional tremors Hyperlipidemia Obesity HTN (hypertension) Family History Pertinent family history: no fh of liver disease or GB disease Social History Social History Household Members: None Housing: House Do you presently have visiting nurse or other home services: No Patient Tobacco Use Status: Never used Tobacco Substance Use Type: Marijuana Meds Allergies Allergy/AdvReac Type Severity Reaction Status Date / Time Penicillins Allergy Severe Anaphylaxis Verified 01/10/24 15:39 Active Medications: Current Medications Acetaminophen (Acetaminophen 325 Mg Tablet) 650 mg PO Q6H PRN PRN Reason: Pain, Mild (Pain Scale 1-3) Acetaminophen (Acetaminophen Supp 650 Mg Supp.Rect) 650 mg [place] Q6H PRN PRN Reason: Pain, Mild (Pain Scale 1-3) Amlodipine Besylate (Amlodipine Besylate 10 Mg Tablet) 10 mg PO DAILY [facility]; Protocol Last Admin: 01/11/24 10:31 Dose: 10 mg Cyanocobalamin (Cyanocobalamin (Vitamin B-12) 1,000 Mcg Tablet) 1,000 mcg PO DAILY [facility] Last Admin: 01/11/24 10:31 Dose: 1,000 mcg Hydralazine HCl (Hydralazine Hcl 10 Mg Tablet) 10 mg PO TID [facility]; Protocol Last Admin: 01/11/24 20:25 Dose: 10 mg Lactated Ringer's (Lr) 1,000 mls @ 150 mls/hr IVCONT .Q6H40M [facility] Last Admin: 01/12/24 03:15 Dose: 150 mls/hr Levofloxacin (Levaquin) 750 mg in 150 mls @ 100 mls/hr IV Q24H [facility] Last Infusion: 01/11/24 22:17 Dose: Infused Metronidazole (Flagyl) 500 mg in 100 mls @ 100 mls/hr IV Q8H [facility] Last Admin: 01/12/24 04:29 Dose: 100 mls/hr Melatonin (Melatonin 3 Mg Tablet) 6 mg PO BEDTIME PRN PRN Reason: Insomnia Morphine Sulfate (Morphine Sulfate 4 Mg/Ml Cartridge) 4 mg IVPUSH Q4H PRN; Protocol PRN Reason: Pain, Severe (Pain Scale 7-10) Last Admin: 01/11/24 08:02 Dose: 4 mg Naproxen (Naproxen 250 Mg Tablet) 250 mg PO BID PRN PRN Reason: Pain (Scale Score 4-6) Ondansetron HCl (Ondansetron Hcl 4 Mg/2 Ml Vial) 4 mg IVPUSH Q8H PRN PRN Reason: Nausea and Vomiting Last Admin: 01/11/24 08:02 Dose: 4 mg Propranolol HCl (Propranolol Hcl La 60 Mg Cap.Sa.24h) 60 mg PO DAILY [facility]; Protocol Last Admin: 01/11/24 12:33 Dose: Not Given Sertraline HCl (Sertraline Hcl 50 Mg Tablet) 150 mg PO DAILY [facility] Last Admin: 01/11/24 10:31 Dose: 150 mg Sodium Chloride (0.9 % Sodium Chloride Flush 3 Ml Syringe) 3 ml IVFLUSH QSHIFT [facility] Last Admin: 01/12/24 01:03 Dose: Not Given Trazodone HCl (Trazodone Hcl 50 Mg Tablet) 150 mg PO BEDTIME PRN PRN Reason: Sleep Vitamin D (Cholecalciferol (Vitamin D3) 25 Mcg Tablet) 25 mcg PO DAILY [facility] Last Admin: 01/11/24 10:31 Dose: 25 mcg Home Medications ?Medication ?Instructions ?Recorded ?Confirmed ?Last Taken ?Type amlodipine 10 mg tablet 10 mg PO DAILY 01/11/24 01/11/24 Unknown History atorvastatin 80 mg tablet 40 mg PO DAILY 01/11/24 01/11/24 Unknown History cholecalciferol (vitamin D3) 25 25 mcg PO DAILY 01/11/24 01/11/24 Unknown History mcg (1,000 unit) tablet (Vitamin D3) cyanocobalamin (vitamin B-12) 1,000 mcg PO DAILY 01/11/24 01/11/24 Unknown History 1,000 mcg tablet hydralazine 10 mg tablet 10 mg PO TID 01/11/24 01/11/24 Unknown History hydrochlorothiazide 25 mg tablet 25 mg PO DAILY 01/11/24 01/11/24 Unknown History naproxen 250 mg tablet 250 mg PO BID PRN Pain (Scale 01/11/24 01/11/24 Unknown History Score 4-6) propranolol 60 mg capsule,24 60 mg PO DAILY 01/11/24 01/11/24 Unknown History hr,extended release sertraline 100 mg tablet 150 mg PO DAILY 01/11/24 01/11/24 Unknown History trazodone 100 mg tablet 150 mg PO BEDTIME PRN Sleep 01/11/24 01/11/24 Unknown History Physical Exam Vital Signs: Vital Signs: Last Vital Signs Temp 97.3 F 01/12/24 03:22 Pulse 88 01/12/24 03:22 Resp 20 01/12/24 03:22 BP 126/82 01/12/24 03:22 Pulse Ox 96 01/12/24 03:22 O2 Del Method Nasal Cannula 01/12/24 03:22 O2 Flow Rate 2 01/12/24 03:22 BMI result Body Mass Index 47.4 EXAM: GENERAL: The patient is well developed and nontoxic.obese VITAL SIGNS:see workflow HEENT: +mildly icteric sclerae, PERRLA, EOMI. Oropharynx clear. Moist mucous membranes. Conjunctivae appear well perfused. No thyroid mass. CHEST: Chest wall is nontender. HEART: Regular rate and rhythm without murmurs. LUNGS: Clear to auscultation bilaterally. ABDOMEN: Soft, positive bowel sounds, mildly tender RUQ, no organomegaly.no flank tenderness SKIN: No rash, no excessive bruising, petechiae, or purpura. NEUROLOGIC: Cranial nerves II-XII intact without motor/sensory deficit. Psych: normal affect Results Labs 01/11/24 06:19 01/12/24 05:24 Labs: Short CBC 01/11/24 Range/Units 06:19 WBC 6.3 (4.8-10.8) X10*3/uL Hgb 12.5 L (14.0-18.0) g/dl Hct 37.2 L (42.0-52.0) % Plt Count 155 L (160-400) X10*3/uL BMP 01/11/24 06:19 Sodium 137 Potassium 4.2 Chloride 103 Carbon Dioxide 25 BUN 16 Creatinine 1.21 Calcium 8.3 L D Liver Function 01/11/24 Range/Units 06:19 Total Bilirubin 5.2 H (0.0-1.0) mg/dL Direct Bilirubin 4.3 H (0.0-0.5) mg/dL AST 50 H (5-37) U/L ALT 141 H (0-40) U/L Alkaline Phosphatase 81 (39-117) U/L Albumin 3.2 L (3.5-5.0) g/dL Microbiology Microbiology Results: Microbiology 01/10/24 16:03 Blood - Venous Blood Culture - Preliminary No growth after 24 hours. 01/10/24 15:52 Blood - Venous Blood Culture - Preliminary No growth after [address] scan - abdomen: Attestation: I personally reviewed and interpreted this imaging study as follows: (pancreatitis, stone in GB, distended GB and dilated CBD, ? stone in duodenum ) Assessment and Plan (1) Gallstone pancreatitis: Status: Acute (2) Cholelithiasis: Status: Acute Plan 1/ Symptomatic gallstones with gallstone pancreatitis, LFT coming down, seems may have passed a stone but has another stone impacted in the GB neck PLAN: 1/ trend LFT, if cont coming down then will hold on ERCP< can consider IOC at time of cholecystectomy, but if LFT rising then will consider ERCP prior to cholecystectomy, 2/ Low fat diet Procedures Date of Service Date of Service: 01/12/24
[2024-01-12 06:23] LABS: Alanine Aminotransferase 102 U/L (0-40); Alkaline Phosphatase 94 U/L (39-117); Anion Gap 12 (12-20); Aspartate Amino Transferase 42 U/L (5-37); Bilirubin Direct 2.3 mg/dL (0.0-0.5); Bilirubin Total 2.8 mg/dL (0.0-1.0); Blood Urea Nitrogen 13 mg/dL (9-16); Calcium 8.2 mg/dL (8.4-10.2); Carbon Dioxide 22 mmol/L (22-29); Chloride 105 mmol/L (96-108); Creatinine Clr Calc Pharmacy 99.4; Estimated Glomerular Filt Rate > 60; Glucose Random 97 mg/dL (60-115); Potassium 4.1 mmol/L (3.3-5.1); Sodium 135 mmol/L (135-145); Total Protein 5.6 g/dL (6.5-8.0)
--- NOTE | 2024-01-12 07:32 | HO.PM.IMPN ---
Subjective Subjective Date of Service: 01/12/24 Interval History: Seen in follow up for gallstone pancreatitis with sepsis and acute cholangitis Interval history: Feels slightly better. Had some nausea yesterday without vomiting. Tolerated clears. LFTs trending down. No abd pain. Review of Systems Review of Systems: Yes all other systems are reviewed and are negative Physical Exam Vital Signs: Vital Signs: Last Vital Signs Temp 97.3 F 01/12/24 03:22 Pulse 88 01/12/24 03:22 Resp 20 01/12/24 03:22 BP 126/82 01/12/24 03:22 Pulse Ox 96 01/12/24 03:22 O2 Del Method Nasal Cannula 01/12/24 03:22 O2 Flow Rate 2 01/12/24 03:22 BMI result Body Mass Index 47.4 Constitutional - Awake and Alert, No apparent distress Eyes - PERRLA, EOMI Cardiovascular - S1S2, RRR, No edema Respiratory - Normal lung expansion, Normal respiratory effort, No respiratory distress, CTA bilaterally Gastrointestinal - NT / ND; +BS; No rebound or guarding Extremities - no calf tenderness bilaterally, no swelling Skin - Warm/Dry Neurological - Alert & oriented x3 Psychological - Appropriate affect Objective Data Active Medications Acetaminophen (Acetaminophen 325 Mg Tablet) 650 mg PO Q6H PRN PRN Reason: Pain, Mild (Pain Scale 1-3) Acetaminophen (Acetaminophen Supp 650 Mg Supp.Rect) 650 mg [place] Q6H PRN PRN Reason: Pain, Mild (Pain Scale 1-3) Amlodipine Besylate (Amlodipine Besylate 10 Mg Tablet) 10 mg PO DAILY [facility]; Protocol Last Admin: 01/11/24 10:31 Dose: 10 mg Documented By: SCOTT Cyanocobalamin (Cyanocobalamin (Vitamin B-12) 1,000 Mcg Tablet) 1,000 mcg PO DAILY [facility] Last Admin: 01/11/24 10:31 Dose: 1,000 mcg Documented By: SCOTT Hydralazine HCl (Hydralazine Hcl 10 Mg Tablet) 10 mg PO TID [facility]; Protocol Last Admin: 01/11/24 20:25 Dose: 10 mg Documented By: ADRIAN Lactated Ringer's (Lr) 1,000 mls @ 100 mls/hr IVCONT .Q10H KAREN Last Admin: 01/12/24 03:15 Dose: 150 mls/hr Documented By: ADRIAN Levofloxacin (Levaquin) 750 mg in 150 mls @ 100 mls/hr IV Q24H [facility] Last Infusion: 01/11/24 22:17 Dose: Infused Documented By: ADRIAN Metronidazole (Flagyl) 500 mg in 100 mls @ 100 mls/hr IV Q8H [facility] Last Infusion: 01/12/24 06:09 Dose: Infused Documented By: ADRIAN Melatonin (Melatonin 3 Mg Tablet) 6 mg PO BEDTIME PRN PRN Reason: Insomnia Morphine Sulfate (Morphine Sulfate 4 Mg/Ml Cartridge) 4 mg IVPUSH Q4H PRN; Protocol PRN Reason: Pain, Severe (Pain Scale 7-10) Last Admin: 01/11/24 08:02 Dose: 4 mg Documented By: SCOTT Naproxen (Naproxen 250 Mg Tablet) 250 mg PO BID PRN PRN Reason: Pain (Scale Score 4-6) Ondansetron HCl (Ondansetron Hcl 4 Mg/2 Ml Vial) 4 mg IVPUSH Q8H PRN PRN Reason: Nausea and Vomiting Last Admin: 01/11/24 08:02 Dose: 4 mg Documented By: SCOTT Propranolol HCl (Propranolol Hcl La 60 Mg Cap.Sa.24h) 60 mg PO DAILY [facility]; Protocol Last Admin: 01/11/24 12:33 Dose: Not Given Documented By: SCOTT Non-Admin Reason: pt vomiting Sertraline HCl (Sertraline Hcl 50 Mg Tablet) 150 mg PO DAILY [facility] Last Admin: 01/11/24 10:31 Dose: 150 mg Documented By: SCOTT Sodium Chloride (0.9 % Sodium Chloride Flush 3 Ml Syringe) 3 ml IVFLUSH QSHIFT [facility] Last Admin: 01/12/24 01:03 Dose: Not Given Documented By: ADRIAN Non-Admin Reason: IV Running Trazodone HCl (Trazodone Hcl 50 Mg Tablet) 150 mg PO BEDTIME PRN PRN Reason: Sleep Vitamin D (Cholecalciferol (Vitamin D3) 25 Mcg Tablet) 25 mcg PO DAILY [facility] Last Admin: 01/11/24 10:31 Dose: 25 mcg Documented By: SCOTT Labs 01/11/24 06:19 01/12/24 05:24 Labs: Laboratory Results - last 24 hr 01/11/24 01/12/24 06:19 05:24 Anion Gap 12 Estim Creat Clear Calc 99.4 Estimated GFR > 60 Random Glucose 97 Calcium 8.2 L Total Bilirubin 5.2 H 2.8 H Direct Bilirubin 4.3 H 2.3 H AST 50 H 42 H ALT 141 H 102 H Alkaline Phosphatase 81 94 Total Protein 5.7 L 5.6 L Albumin 3.2 L 3.0 L Microbiology Microbiology Results: Microbiology 01/10/24 16:03 Blood Culture - Preliminary Blood - Venous No growth after 24 hours. 01/10/24 15:52 Blood Culture - Preliminary Blood - Venous No growth after 24 hours. Quality Stroke Does the patient have a stroke diagnosis?: No VTE Prior VTE?: No VTE Risk Level:: Medical - moderate - high VTE Device Contraindication: N/A - Device Ordered VTE Drug Contraindication: Treatment Not Indicated
[2024-01-12 07:49] VITALS: BP 132/76; PULSE 75; RESP 12; TEMP 36.6; O2SAT 92
[2024-01-12 10:05] VITALS: BP 132/76; PULSE 75
[2024-01-12] MEDS: Propranolol HCL LA 60 MG CAP.SA.24H PO (10:05)
[2024-01-12 10:06] VITALS: BP 132/76
[2024-01-12] MEDS: hydrALAZINE HCl 10 MG TABLET PO (10:06)
[2024-01-12] MEDS: Sertraline HCL 50 MG TABLET 150 MG PO (10:06)
[2024-01-12 10:07] VITALS: BP 132/76
[2024-01-12] MEDS: amLODIPine Besylate 10 MG TABLET PO (10:07)
[2024-01-12] MEDS: Cyanocobalamin (Vitamin B-12) 1,000 MCG TABLET 1000 MCG PO (10:07)
[2024-01-12] MEDS: Cholecalciferol (Vitamin D3) 25 MCG TABLET PO (10:07)
[2024-01-12] MEDS: Lactated Ringers 1,000 ML 100 ML IVCONT (10:11)
--- NOTE | 2024-01-12 14:07 | PM.PNGS ---
Subjective Subjective Date of Service: 01/12/24 Interval history: Patient was abdominal symptoms markedly improved. LFTs also improving. Patient is tentatively to be discharged home. Physical Exam Vital Signs: Vital Signs: Last Vital Signs Temp 97.9 F 01/12/24 07:49 Pulse 75 01/12/24 10:05 Resp 12 01/12/24 07:49 BP 132/76 01/12/24 10:07 Pulse Ox 92 01/12/24 07:49 O2 Del Method Room Air 01/12/24 07:49 O2 Flow Rate 2 01/12/24 03:22 BMI result Body Mass Index 47.4 GI: Other: Massively corpulent abdomen. Minimal epigastric/right upper quadrant tenderness. No evidence of any guarding, rebound, or rigidity. Objective Data Active Medications Acetaminophen (Acetaminophen 325 Mg Tablet) 650 mg PO Q6H PRN PRN Reason: Pain, Mild (Pain Scale 1-3) Acetaminophen (Acetaminophen Supp 650 Mg Supp.Rect) 650 mg ID Q6H PRN PRN Reason: Pain, Mild (Pain Scale 1-3) Amlodipine Besylate (Amlodipine Besylate 10 Mg Tablet) 10 mg PO DAILY [facility]; Protocol Last Admin: 01/12/24 10:07 Dose: 10 mg Documented By: DEVAN Cyanocobalamin (Cyanocobalamin (Vitamin B-12) 1,000 Mcg Tablet) 1,000 mcg PO DAILY [facility] Last Admin: 01/12/24 10:07 Dose: 1,000 mcg Documented By: DEVAN Hydralazine HCl (Hydralazine Hcl 10 Mg Tablet) 10 mg PO TID [facility]; Protocol Last Admin: 01/12/24 10:06 Dose: 10 mg Documented By: DEVAN Lactated Ringer's (Lr) 1,000 mls @ 100 mls/hr IVCONT .Q10H [facility] Last Admin: 01/12/24 10:11 Dose: 100 mls/hr Documented By: DEVAN Levofloxacin (Levaquin) 750 mg in 150 mls @ 100 mls/hr IV Q24H [facility] Last Infusion: 01/11/24 22:17 Dose: Infused Documented By: ADRIAN Metronidazole (Flagyl) 500 mg in 100 mls @ 100 mls/hr IV Q8H [facility] Last Admin: 01/12/24 12:58 Dose: 100 mls/hr Documented By: DEVAN Melatonin (Melatonin 3 Mg Tablet) 6 mg PO BEDTIME PRN PRN Reason: Insomnia Morphine Sulfate (Morphine Sulfate 4 Mg/Ml Cartridge) 4 mg IVPUSH Q4H PRN; Protocol PRN Reason: Pain, Severe (Pain Scale 7-10) Last Admin: 01/11/24 08:02 Dose: 4 mg Documented By: SCOTT Naproxen (Naproxen 250 Mg Tablet) 250 mg PO BID PRN PRN Reason: Pain (Scale Score 4-6) Ondansetron HCl (Ondansetron Hcl 4 Mg/2 Ml Vial) 4 mg IVPUSH Q8H PRN PRN Reason: Nausea and Vomiting Last Admin: 01/11/24 08:02 Dose: 4 mg Documented By: SCOTT Propranolol HCl (Propranolol Hcl La 60 Mg Cap.Sa.24h) 60 mg PO DAILY [facility]; Protocol Last Admin: 01/12/24 10:05 Dose: 60 mg Documented By: DEVAN Sertraline HCl (Sertraline Hcl 50 Mg Tablet) 150 mg PO DAILY [facility] Last Admin: 01/12/24 10:06 Dose: 150 mg Documented By: DEVAN Sodium Chloride (0.9 % Sodium Chloride Flush 3 Ml Syringe) 3 ml IVFLUSH QSHIFT [facility] Last Admin: 01/12/24 10:04 Dose: Not Given Documented By: DEVAN Non-Admin Reason: IV Running Trazodone HCl (Trazodone Hcl 50 Mg Tablet) 150 mg PO BEDTIME PRN PRN Reason: Sleep Vitamin D (Cholecalciferol (Vitamin D3) 25 Mcg Tablet) 25 mcg PO DAILY [facility] Last Admin: 01/12/24 10:07 Dose: 25 mcg Documented By: DEVAN Labs 01/11/24 06:19 01/12/24 05:24 Labs: Laboratory Results - last 24 hr 01/12/24 05:24 Anion Gap 12 Estim Creat Clear Calc 99.4 Estimated GFR > 60 Random Glucose 97 Calcium 8.2 L Total Bilirubin 2.8 H Direct Bilirubin 2.3 H AST 42 H ALT 102 H Alkaline Phosphatase 94 Total Protein 5.6 L Albumin 3.0 L Microbiology Microbiology Results: Microbiology 01/11/24 Unknown Urine Culture - Final Urine clean catch - Clean Catch Midstream No growth. 01/10/24 16:03 Blood Culture - Preliminary Blood - Venous No growth after 24 hours. 01/10/24 15:52 Blood Culture - Preliminary Blood - Venous No growth after 24 hours. Procedures Date of Service Date of Service: 01/12/24 Progress Note: A&P Assessment and plan (1) Cholelithiasis: Status: Acute (2) Gallstone pancreatitis: Status: Acute Plan Current plan is for the patient to follow with me as an outpatient for eventual scheduling of laparoscopic cholecystectomy. All questions answered. Time Spent With Patient Time: Total time managing care of this patient today ____ minutes. Quality Stroke Does the patient have a stroke diagnosis?: No VTE Prior VTE?: No VTE Risk Level:: Medical - moderate - high VTE Device Contraindication: N/A - Device Ordered VTE Drug Contraindication: Treatment Not Indicated
--- NOTE | 2024-01-12 14:09 | P.DS_ITS ---
DS: Providers Provider Date of Service: 01/12/24 Date of admission: 01/10/24 20:26 Date of discharge: 01/12/24 Primary care physician: Unknown Physician Attending physician on admission: Alexandra Parker Consults: 01/10/24 20:27 Consult to General Surgery Routine Consulting Provider: [facility] General Surgeons Reason for consultation: gallstone pancreatitis 01/10/24 21:24 Consult to Gastroenterology Routine Consulting Provider: Massiel Andrews Reason for consultation: gall stone pancreatitis with cholangitis Attending physician on discharge: [facility] Discharging clinician: Martha Bailon DS: Diagnosis Discharge Diagnosis (1) Cholelithiasis: Status: Acute (2) Gallstone pancreatitis: Status: Acute DS: Summary Hospital Course Hospital Course: HPI on admission by Dr. Parker 01/09: Chief Complaint: Abdominal Pain This is a 63-year-old male with pertinent history of hypertension, mixed hyperlipidemia, essential tremor, mood disorder, obesity who presents to the emergency department for evaluation of right upper quadrant pain. Patient states upper right-sided pain began 2 days prior to presentation in the middle of the night. He had an episode of nausea and nonbloody emesis along with it. This pain was initially intermittent but now is constant, nonradiating and without any relieving factors. He has not able to tolerate any p.o. intake. Also had 1 episode of nonbloody diarrhea. No similar issue or history of gallbladder problems in the past. Has subjective fever and chills. Chest discomfort, palpitations, shortness of breath, changes in urinary habits. In the emergency department, lipase found to be elevated and imaging concerning for acute pancreatitis. Also noted to have gallstones with biliary ductal dilatation. Transaminases found to be elevated and bilirubin 7. Patient was initiated on empiric IV antibiotics in the ER. Hospital course: Admitted for gallstone pancreatitis with significantly elevated LFTs and total bili 7 and with cholangitis and severe sepsis. Treated with IV analgesics, aggressive IVF, and Iv levaquin/flagyl. Seen by surgery recommending harley once labs and clinical picture stabilized given pancreatitis. RUQ U/S did demonstrate acute harley with gallbladder wall thickening and 7mm stone in the neck of the gallbladder. There was also 1.2 CBD dilitation. Obstruction likely passed as Tbili dropped to 2.8 without intervention. MRCP had been ordered but unfortunately pt unable to undergo MR due to body habitus. Seen by GI recommending ERCP only if indicated following cholecystectomy with cholangiogram. Sofiya present on admission resolved with IVF and pt significantly improved clinically and diet was successfully advanced. Blood cultures negative to date. Severe sepsis present on admission resolved. he will discharge home to complete flagyl 500mg TID x21 doses and levaquin 750mg daily x 7 doses. He is advised to call the surgery office Saturday to scheduled in office appt and ultimately cholecystectomy with cholangiogram. If indicated, follow up with Gi at discretion of general surgery for ERCP. Follow low fat diet, abstain from alcohol. HCTZ was held on admission due to SOFIYA but blood pressures stable off medication. Advised to continue holding on dc and to continue amlodipine, hy dralazine, and metoprolol as previously prescribed. Continue all other home medications and follow up with pcp. Of note, pt was noted to desaturate to 88% on RA overnight. Given body habitus and neck circumference there is concern for MATEUS and patient should be evaluated outpt with sleep study for diagnosis. Importance of diagnosis and CPAP compliance discussed with patient. Weight loss efforts encouraged. #Sepsis due to gallstone pancreatitis with acute cholangitis -continue IV Levaquin and Flagyl (initiated 01/09). COntinue levaquin 750mg daily x 7 doses and flagyl 500mg TID x 21 doses -initially managed with aggressive IV LR at 150 mL/hr ans weaned with clinical improvement -unable to perform MRCP due to body habitus. Per Gen surgery- diet advanced with plan for outpt follow up in the office and ultimately lap vs open cholecystectomy. GI also followed. Recommends ERCP only if indicated by cholangiogram performed with cholecystectomy -Pain managed with IV and PO narcotics but was weaned -Diet successfully advanced #Severe sepsis- resolved -Initial lactic acid 4.1 (met at 1552 01/09) and SOFIYA (creat just 1.8) received IVF bolus, normalized to 0.9 #Elevated LFTs with obstructive jaundice -due to above, plan as above -sgnificantly improved with Tbili 6.8-->2.8 without intervention- likely passed stone #Acute kidney injury- resolved -creat 1.81 --> 1.2 which appears to be baseline -HCTZ held on admission. Treated with IVF #Hypertension -continue amlodipine, propranolol, hydralazine. Hydrochlorothiazide held in setting of SOFIYA. However, BP remained stable off medication. Would continue holding hctz on discharge #Mixed hyperlipidemia -resume statin #Essential tremor -continue propranolol #Mood disorder -continue home meds # morbid obesity with BMI greater than 47 -weight loss efforts encouraged #Concern for MATEUS -desatted to 88% on RA during admission. Outpt sleep study advised Status at Discharge Functional status at discharge: independent ambulation Overall status at discharge: patient is progressing back to baseline Time Attestation Discharge Coordination Time (in mins): 40 Quality: Safe Use of Opioids Does Pt have an Active Cancer Diagnosis on the Problem List?: No Quality: Stroke Does the patient have a stroke diagnosis?: No Physical Exam Vital Signs: Vital Signs: Last Vital Signs Temp 97.9 F 01/12/24 07:49 Pulse 75 01/12/24 10:05 Resp 12 01/12/24 07:49 BP 132/76 01/12/24 10:07 Pulse Ox 92 01/12/24 07:49 O2 Del Method Room Air 01/12/24 07:49 O2 Flow Rate 2 01/12/24 03:22 BMI result Body Mass Index 47.4 Constitutional - Awake and Alert, No apparent distress Eyes - PERRLA, EOMI Cardiovascular - S1S2, RRR, No edema Respiratory - Normal lung expansion, Normal respiratory effort, No respiratory distress, CTA bilaterally Gastrointestinal - NT / ND; +BS; No rebound or guarding Extremities - no calf tenderness bilaterally, no swelling Skin - Warm/Dry Neurological - Alert & oriented x3 Psychological - Appropriate affect DS: Data Data Completed and Pending Labs on day of discharge: Laboratory Results - last 24 hr 01/12/24 05:24 Sodium 135 Potassium 4.1 Chloride 105 Carbon Dioxide 22 Anion Gap 12 BUN 13 Creatinine 1.01 Estim Creat Clear Calc 99.4 Estimated GFR > 60 Random Glucose 97 Calcium 8.2 L Total Bilirubin 2.8 H Direct Bilirubin 2.3 H AST 42 H ALT 102 H Alkaline Phosphatase 94 Total Protein 5.6 L Albumin 3.0 L Preliminary micro results at discharge 01/10/24 16:03 Blood Culture - Preliminary Blood - Venous No growth after 24 hours. 01/10/24 15:52 Blood Culture - Preliminary Blood - Venous No growth after 24 hours. Discharge Plan Discharge Anticipated Discharge Date/Time: 01/12/24 13:51 Patient Disposition: Home, Self-Care Discharge Diagnosis: cholangitis, gallstone pancreatitis Referrals: Casey Monique MD [Physician] - 01/14/24 Physician,Tori J [Primary Care Provider] - 1 Week Discharge Medications: New levofloxacin 750 mg tablet 750 mg PO DAILY Qty: 7 0RF metronidazole 500 mg tablet 500 mg PO Q8H Qty: 21 0RF Continued sertraline 100 mg Tablet 150 mg PO DAILY trazodone 100 mg Tablet 150 mg PO BEDTIME PRN (Reason: Sleep) cholecalciferol (vitamin D3) [Vitamin D3] 25 mcg (1,000 unit) Tablet 25 mcg PO DAILY hydralazine 10 mg Tablet 10 mg PO TID naproxen 250 mg Tablet 250 mg PO BID PRN (Reason: Pain (Scale Score 4-6)) amlodipine 10 mg Tablet 10 mg PO DAILY atorvastatin 80 mg Tablet 40 mg PO DAILY propranolol 60 mg Capsule,Extended Release 24 Hr 60 mg PO DAILY cyanocobalamin (vitamin B-12) 1,000 mcg Tablet 1,000 mcg PO DAILY Discontinued hydrochlorothiazide 25 mg Tablet 25 mg PO DAILY Discharge Orders: Discharge Order (Routine); Ordered 01/12/24 Ordered By: Marhta aBilon Diet: Low fat, low cholesterol Activity on Discharge: As tolerated Stand Alone Forms: Patient Portal Discharge page Print Language: Rw[place] Care Plan Goals: Cholangitis- bacterial infection of the gallbladder -continue levaquin 750mg daily x7 days (next dose 8pm this evening) and metronidazole 500mg every 8 hours x7 days (next dose due around 8pm). Take with food and eat low fat yogurt daily for probiotic. DO NOT DRINK ALCOHOL WHILE TAKING METRONIDAZOLE -You will need to CALL GENERAL SURGERY ON SATURDAY for an appt nida as you will likely need your gallbladder out. Dr. Monique saw you in the hospital and is awaiting your call. Gallstone pancreatitis -your liver enzymes have gone down considerably indicating you likely passed the gallstone. You are tolerating diet and pain is resolved -follow a low fat diet Acute kidney injury- resolved with IV fluids Hypertension -your hydrochlorothiade was held during admission due to your kidney function. However, your blood pressures remain controlled. -Continue taking amlodipine, hydralazine, and propranolol. Would continue holding hydrochlorothiazide unless blood pressures are uncontrolled Concern for obstructive sleep apnea -oxygen levels dipped overnight to 88%. You likely have obstructive sleep apnea which causes periods overnight where there is a cessation in breathing which puts you at significant risk for afib, stroke, cvd, and even sudden cardiac -follow up with pcp and request sleep study and you may require cpap. Weight loss can also help with this. Health Concerns: Cholangitis gallstone pancreatitis Acute kidney injury concern for obstructive sleep apnea Plan of Treatment: See care plan goals Assessment: See care plan goals. See discharge summary Patient Instructions: Pancreatitis (DC), Gallstones (DC), Low Fat Diet (DC) Discharge Date/Time: 01/12/24 15:44
--- NOTE | 2024-01-12 14:30 | MHC.CM.PN ---
PT REPORTS HE LIVES ALONE AND IS INDEPENDENT WITH CARE HE HAS NO SERVICES AND USES A [facility] FOR DME PT SAYS HE HAS A HCP, COPY REQUESTED PCP: YULI WRIGHT AT [facility] DCP: PT WILL DC TODAY WITH NO SERVICES VIA [facility] TRANSPORT
== END 2024-01-12 15:44 | disposition home or self-care (01) | DRG 871 ==
LOC: HO.ED 20:24 → HO.EDOVER 20:32 → HO.S3 01-11 17:28
PROVIDERS: Internal Medicine Gastroenterology; Admitting Provider Student in an Organized Health Care Education/Training Program; Emergency Provider Emergency Medicine; PCP Internal Medicine; Visit Provider Physician Assistant
DX: A41.9 Sepsis, unspecified organism (principal); K85.10 Biliary acute pancreatitis without necrosis or infection; N17.9 Acute kidney failure, unspecified; Z68.42 Body mass index [BMI] 45.0-49.9, adult; K80.32 Calculus of bile duct with acute cholangitis without obstruction; F39 Unspecified mood [affective] disorder; E66.01 Morbid (severe) obesity due to excess calories; I10 Essential (primary) hypertension; G25.2 Other specified forms of tremor; E78.2 Mixed hyperlipidemia; R65.20 Severe sepsis without septic shock; Z20.822 Contact with and (suspected) exposure to COVID-19; Z79.899 Other long term (current) drug therapy
CPT/HCPCS: 0241U; 36415; 71045; 74176; 76705; 80048; 80076; 81001; 82550; 83605; 83690; 83735; 84145; 84484; 85007; 85025; 85027; 85610; 87040; 87086; 93005; 99285; J1836; J1956; J2270; J2405; J2765; J7120

== ENCOUNTER → 2024-01-10 15:39 | Outpatient (BNV) | payer OTHER, SELFPAY | PROVIDERS: Admitting Provider Student in an Organized Health Care Education/Training Program; Emergency Provider Emergency Medicine; Visit Provider Internal Medicine Cardiovascular Disease | DX: R07.9 Chest pain, unspecified (principal); R00.0 Tachycardia, unspecified | CPT/HCPCS: 93010 ==

== ENCOUNTER → 2024-01-10 20:26 | Outpatient (BNV) | payer OTHER, SELFPAY | PROVIDERS: Admitting Provider Student in an Organized Health Care Education/Training Program; Emergency Provider Emergency Medicine; Visit Provider Student in an Organized Health Care Education/Training Program | DX: K80.20 Calculus of gallbladder without cholecystitis without obstruction (principal); K85.10 Biliary acute pancreatitis without necrosis or infection; A41.9 Sepsis, unspecified organism | CPT/HCPCS: 99223; 99232; 99239 ==

== ENCOUNTER → 2024-01-10 20:26 | Outpatient (BNV) | payer OTHER, SELFPAY | PROVIDERS: Admitting Provider Student in an Organized Health Care Education/Training Program; Emergency Provider Emergency Medicine; Visit Provider Internal Medicine Gastroenterology | DX: K85.10 Biliary acute pancreatitis without necrosis or infection (principal); K80.20 Calculus of gallbladder without cholecystitis without obstruction | CPT/HCPCS: 99223 ==

== ENCOUNTER → 2024-01-10 20:26 | Outpatient (BNV) | payer OTHER, SELFPAY | PROVIDERS: Admitting Provider Student in an Organized Health Care Education/Training Program; Emergency Provider Emergency Medicine; Visit Provider Surgery | DX: K80.20 Calculus of gallbladder without cholecystitis without obstruction (principal); K85.10 Biliary acute pancreatitis without necrosis or infection | CPT/HCPCS: 99223; 99232 ==

== ENCOUNTER 2024-01-21 14:34 | Outpatient (AMB) | payer OTHER, SELFPAY ==
--- NOTE | 2024-01-21 14:42 | A.OFFVIS_ITS ---
Vital Signs 01/21/24 14:46 Weight 284 lb BP 165/106 H Blood Pressure Location Rt radial Position Sitting Pulse 92 Intake Visit Reasons: Gallstones Intake Note: Patient referred after ER visit for gallstones. Patient c/o: twisting of stomach pain. Has had 1 episodes of pain. ABD/ pelvis CT and ABD US: 01-10-24. Vulnerability Researcher Required: No Accompanied by: Self / Same As Patient Allergies Penicillins Allergy (Severe, Verified 01/21/24 14:43) Anaphylaxis HPI Comments Details: Patient presents here for evaluation of for laparoscopic cholecystectomy. Patient had a recent hospitalization and was seen by me for gallstone pancreatitis. He now presents for laparoscopic possible open cholecystectomy. His gallstone pancreatitis symptoms have completely resolved. He has tolerating a diet. He is having regular bowel habits. He is ambulating with minimal assistance. As noted above patient was seen in consultation during recent hospitalization. Chart was reviewed and patient evaluated [facility] Medical History (Updated 01/21/24 @ 14:44 by COLBY Edwards) Tear, knee, medial collateral ligament Occasional tremors Hyperlipidemia Obesity HTN (hypertension) Surgical History (Updated 01/22/24 @ 09:31 by Casey Monique MD) H/O vasectomy Hx of mastectomy Social History Household Members: None Housing: House Do you presently have visiting nurse or other home services: No Patient Tobacco Use Status: Never used Tobacco Substance Use Type: Marijuana service: Yes Physical Exam Vital Signs: Last Vital Signs Pulse 92 01/21/24 14:46 BP 165/106 H 01/21/24 14:46 Chest Other: Chest breath sounds bilaterally, HS 1 in 2 GI Other: Abdomen very corpulent, soft, benign Assessment & Plan Assessment & Plan (1) Cholelithiasis: Code(s): K80.20 - Calculus of gallbladder without cholecystitis without obstruction Category: Surgical Plan A lengthy discussion was had with the patient regarding the risks, benefits, and alternatives laparoscopic possible open cholecystectomy which included but not limited to bleeding, infection, recurrence of symptoms, numbness, pain, scarring, bowel or bile duct injury or leak and the patient wishes to proceed. All questions answered. Arrangements made for this under day which is convenient for him. Coding Level of Care Code Est Pt Level 5 (58956) Diagnoses Cholelithiasis K80.20
[2024-01-21 14:46] VITALS: BP 165/106; PULSE 92
== END 2024-01-21 14:54 | disposition home or self-care (01) ==
PROVIDERS: PCP Internal Medicine; Visit Provider Surgery
DX: K80.20 Calculus of gallbladder without cholecystitis without obstruction (principal)
CPT/HCPCS: 99214

== ENCOUNTER → 2024-01-21 14:34 | Outpatient (BNVA) | payer OTHER, SELFPAY | PROVIDERS: PCP Internal Medicine; Visit Provider Surgery | DX: K80.20 Calculus of gallbladder without cholecystitis without obstruction (principal) | CPT/HCPCS: 99212 ==

== ENCOUNTER 2024-03-13 06:35 | Day surgery (SDC) | payer OTHER, SELFPAY ==
[2024-03-04 13:54] VITALS: BMI 49.1
--- NOTE | 2024-03-11 14:11 | HO.ANESPROP2 ---
Documented by User: Charlotte Aden NP 03/11/24 14:13 HPI - Anesthesia Eval Consult details Narrative: 64yo M for Cholecystectomy Laparoscopic C admit 12/2023 with Sepsis due to gallstone pancreatitis with acute cholangitis, SOFIYA Stable at PCP office visit post-discharge [facility] Active Problems Active Problems: All Active Problems Cholelithiasis (Acute) Acute cholecystitis (Acute) Biliary colic (Acute) Past Medical History Medical History Arthritis Back pain Elevated liver function tests SOB (shortness of breath) Anxiety Depression Hx of concussion Sleep apnea Tear, knee, medial collateral ligament Occasional tremors Hyperlipidemia Obesity HTN (hypertension) Surgical History Surgical History Hx of left knee surgery H/O colonoscopy H/O vasectomy Hx of mastectomy Social History Social History Household Members: None Housing: House Are you a primary home care physical therapist to a significant other at home: No (ex ) Do you presently have visiting nurse or other home services: No Comment: leg brace Patient Tobacco Use Status: Former Tobacco user Tobacco use type: Smokeless Tobacco Use of substances other than those prescribed or required for medical reasons: Yes Substance Use Type: Marijuana Substance Use Frequency: Occasionally Have you been hit, kicked, punched, or otherwise hurt by someone within the past year? If so, by whom?: No Are you DNR?: No Advance Directives: No Advance Directives Information Provided: Yes Advance Directives on File: No Recently lost weight without trying: No Eating poorly because of decreased appetite: No Nutrition Risks: No Nutritional Risk Poor oral hygiene: Yes (missing teeth) service: Yes Meds Allergies Allergy/AdvReac Type Severity Reaction Status Date / Time Penicillins Allergy Severe Anaphylaxis Verified 01/21/24 14:43 Home Medications ?Medication ?Instructions ?Recorded ?Confirmed ?Last Taken ?Type amlodipine 10 mg tablet 10 mg PO DAILY 01/11/24 03/04/24 Unknown History atorvastatin 80 mg tablet 40 mg PO DAILY 01/11/24 03/04/24 Unknown History cholecalciferol (vitamin D3) 25 25 mcg PO DAILY 01/11/24 03/04/24 Unknown History mcg (1,000 unit) tablet (Vitamin D3) cyanocobalamin (vitamin B-12) 1,000 mcg PO DAILY 01/11/24 03/04/24 Unknown History 1,000 mcg tablet hydralazine 10 mg tablet 10 mg PO TID 01/11/24 03/04/24 Unknown History naproxen 250 mg tablet 250 mg PO BID PRN Pain (Scale 01/11/24 03/04/24 Unknown History Score 4-6) propranolol 60 mg capsule,24 60 mg PO DAILY 01/11/24 03/04/24 Unknown History hr,extended release sertraline 100 mg tablet 150 mg PO DAILY 01/11/24 03/04/24 Unknown History trazodone 100 mg tablet 150 mg PO BEDTIME PRN Sleep 01/11/24 03/04/24 Unknown History hydrochlorothiazide 25 mg tablet 25 mg PO DAILY 03/04/24 03/04/24 Unknown History Exam Height,Weight and Vital Signs: Height 5 ft 5 in Weight 133.81 kg Pertinent Lab Results Pertinent Lab Results: Laboratory Tests 01/11/24 01/12/24 06:19 05:24 WBC 6.3 Hgb 12.5 L Hct 37.2 L Plt Count 155 L Sodium 135 Potassium 4.1 Chloride 105 Carbon Dioxide 22 BUN 13 Creatinine 1.01 Narrative Narrative: EKG (during inpt with sepsis) Vent. Rate : 120 BPM Atrial Rate : 120 BPM P-R Int : 156 ms QRS Dur : 078 ms QT Int : 314 ms P-R-T Axes : 007 -27 007 degrees QTc Int : 443 ms Sinus tachycardia Inferior infarct , age undetermined Abnormal ECG No previous ECGs available Assessment and Plan Assessment Anesthesia Assessment: Chart Reviewed Documented by User: Eladia Zaragoza MD 03/13/24 07:32 [facility] Past Medical History Medical History Arthritis Back pain Elevated liver function tests SOB (shortness of breath) Anxiety Depression Hx of concussion Sleep apnea Tear, knee, medial collateral ligament Occasional tremors Hyperlipidemia Obesity HTN (hypertension) Surgical History Surgical History Hx of left knee surgery H/O colonoscopy H/O vasectomy Hx of mastectomy History of Problems with Anesthesia: No Social History Social History Household Members: None Housing: House Are you a primary home care physical therapist to a significant other at home: No (ex ) Do you presently have visiting nurse or other home services: No Comment: leg brace Patient Tobacco Use Status: Former Tobacco user Tobacco use type: Smokeless Tobacco Use of substances other than those prescribed or required for medical reasons: Yes Substance Use Type: Marijuana Substance Use Frequency: Occasionally Have you been hit, kicked, punched, or otherwise hurt by someone within the past year? If so, by whom?: No Are you DNR?: No Advance Directives: No Advance Directives Information Provided: Yes Advance Directives on File: No Recently lost weight without trying: No Eating poorly because of decreased appetite: No Nutrition Risks: No Nutritional Risk Poor oral hygiene: Yes (missing teeth) service: Yes Meds Allergies Allergy/AdvReac Type Severity Reaction Status Date / Time Penicillins Allergy Severe Anaphylaxis Verified 01/21/24 14:43 Home Medications ?Medication ?Instructions ?Recorded ?Confirmed ?Last Taken ?Type amlodipine 10 mg tablet 10 mg PO DAILY 01/11/24 03/04/24 Unknown History atorvastatin 80 mg tablet 40 mg PO DAILY 01/11/24 03/04/24 Unknown History cholecalciferol (vitamin D3) 25 25 mcg PO DAILY 01/11/24 03/04/24 Unknown History mcg (1,000 unit) tablet (Vitamin D3) cyanocobalamin (vitamin B-12) 1,000 mcg PO DAILY 01/11/24 03/04/24 Unknown History 1,000 mcg tablet hydralazine 10 mg tablet 10 mg PO TID 01/11/24 03/04/24 Unknown History naproxen 250 mg tablet 250 mg PO BID PRN Pain (Scale 01/11/24 03/04/24 Unknown History Score 4-6) propranolol 60 mg capsule,24 60 mg PO DAILY 01/11/24 03/04/24 Unknown History hr,extended release sertraline 100 mg tablet 150 mg PO DAILY 01/11/24 03/04/24 Unknown History trazodone 100 mg tablet 150 mg PO BEDTIME PRN Sleep 01/11/24 03/04/24 Unknown History hydrochlorothiazide 25 mg tablet 25 mg PO DAILY 03/04/24 03/04/24 Unknown History Exam Airway Mallampati Class: IV TM Dist: >3cm Neck ROM: Limited Loose/Missing/Broken Teeth: Yes Heart: RRR Lungs: CTA Assessment and Plan Assessment Anesthesia Assessment: Anesthesia Plan Discussed Final Anesthetic Review History of Problems with Anesthesia: No NPO: Yes ASA Class: III Final Preanesthetic Review: Meds/Allgs Chart Reviewed, Consent Obtained/Reviewed and Anes Risks/Benef Reviewed Patient Risk: Intermediate Procedure Risk: Intermediate Anesthetic Plan Anesthetic Plan: GA Disposition: Standard PACU
--- NOTE | 2024-03-12 11:31 | MHC.SHP ---
Pre-Procedural Eval Section A - 24 Hr Update-Section A only Date of Service: 03/13/24 The patient is an INPATIENT: No Changes since office visit: No Cold of Flu in the past 2 weeks, No New Medical Problems, No Changes in Medication and No Patient answered all questions Section B - Complete if H&P > 30 days Chief Complaint: Calculus of gallbladder without cholecystitis Allergies: Allergies Allergy/AdvReac Type Severity Reaction Status Date / Time Penicillins Allergy Severe Anaphylaxis Verified 01/21/24 14:43 Plan I have reviewed the history and physical and performed a pertinent physical examination on my patient. No changes have occurred unless specified. Time Spent With Patient Time: Total time managing care of this patient today ____ minutes.
[2024-03-13] VITALS (10 sets, daily range): BP systolic 132–178; BP diastolic 89–115; PULSE 63–82; RESP 12–18; TEMP 36.1–36.6; O2SAT 82–99; BMI 45.8
[2024-03-13] MEDS: Lactated Ringers 1,000 ML 100 ML IVCONT (07:02)
--- NOTE | 2024-03-13 08:41 | P.OP_ITS ---
Operative Note Operative Note Date of Service: 03/13/24 Narrative: Preoperative diagnosis: [] Symptomatic gallbladder Postop diagnosis: [] The same Procedure [] laparoscopic cholecystectomy Surgeon: [] Kayden Veterinary Meat Inspector: [] Patrick Type of Anesthesia: [] General Indication for surgery: [] Gallbladder with extensive omental adhesions to it. Moderately intrahepatic gallbladder. Massively corpulent abdomen Findings: [] Patient brought to the operating room, placed on operative table supine position, after an adequate level of general anesthesia was induced, the patient's abdomen was prepped and draped in usual sterile fashion. Using a supraumbilical curvilinear incision, Andrews technique was used to insufflate abdominal cavity to 15 mm of CO2. Upper midline and right subcostal ports were placed under direct laparoscopic view, and the patient placed in reverse Tr endelenburg position, and tilted to the left. Findings were as noted above. Gallbladder was grasped using laparoscopic graspers and retracted superiorly and laterally. Dense omental adhesions were swept off the gallbladder with the hilum was approached. Cystic artery and cystic duct were each identified, circumferentially skeletonized, traced directly into the gallbladder, and critical view obtained. Each was clipped proximally x2, distally x1, and transected gallbladder which was moderately intrahepatic was then cauterized from the gallbladder fossa using Bovie. Specimen placed in an Endo-Catch bag, a retrieved through the umbilical port. Abdominal cavity was copiously irrigated and secured hemostasis. All ports removed under direct laparoscopic view. Wounds were closed in the following manner; umbilical wound is fascia reapproximated using interrupted 0 Vicryl sutures. Skin wounds were closed using subcuticular 4-0 Vicryl sutures followed by Steri-Strips and sterile dressings. Wounds were infiltrated 0.5% Marcaine at completion. Sponge, needle, and instrument counts reported correct. Patient tolerated the procedure well and emerged from anesthesia stable condition. EBL minimal
[2024-03-13] MEDS: HYDROmorphone HCl 0.5 MG/0.5 ML SYRINGE 0.25 MG IVPUSH (09:10)
== END 2024-03-13 11:05 | disposition home or self-care (01) ==
PROVIDERS: PCP Internal Medicine; Visit Provider Surgery
PROC: 0FT44ZZ Resection of Gallbladder, Percutaneous Endoscopic Approach (ICD-10-PCS; CPT 47562; principal; 2024-03-13 07:30)
DX: K81.1 Chronic cholecystitis (principal); K82.8 Other specified diseases of gallbladder; E65 Localized adiposity; Q44.1 Other congenital malformations of gallbladder; I10 Essential (primary) hypertension; E78.5 Hyperlipidemia, unspecified; R25.1 Tremor, unspecified; E66.9 Obesity, unspecified; Z88.0 Allergy status to penicillin; Z79.899 Other long term (current) drug therapy; Z87.891 Personal history of nicotine dependence
CPT/HCPCS: 47562; 88304; J0736; J1100; J1170; J2250; J2405; J2704; J2795; J3010

== ENCOUNTER → 2024-03-13 06:35 | Outpatient (BNV) | payer OTHER, SELFPAY | PROVIDERS: PCP Internal Medicine; Visit Provider Surgery | DX: K80.20 Calculus of gallbladder without cholecystitis without obstruction (principal) | CPT/HCPCS: 47562 ==

== ENCOUNTER 2024-03-24 10:32 | Outpatient (AMB) | payer OTHER, SELFPAY ==
--- NOTE | 2024-03-24 10:37 | A.OFFVIS_ITS ---
Intake Visit Reasons: S/P lap harley Intake Note: Patient here s/p lap ahrley. Reports incisions healing well. Patient c/o: itch along steri strips. No longer taking rx pain meds. SX: 03-13-2024. Loan Counselor Required: No Accompanied by: Self / Same As Patient Allergies Penicillins Allergy (Severe, Verified 03/24/24 10:38) Anaphylaxis HPI Comments Details: Patient presents for follow-up status post laparoscopic cholecystectomy. He is doing quite well. He is tolerating a diet. He is having regular bowel habits. He is increasing his activity level. He has minimal incisional discomfort. [facility] Medical History Arthritis Back pain Elevated liver function tests SOB (shortness of breath) Anxiety Depression Hx of concussion Sleep apnea Tear, knee, medial collateral ligament Occasional tremors Hyperlipidemia Obesity HTN (hypertension) Surgical History Hx laparoscopic cholecystectomy (03/13/24) Hx of left knee surgery H/O colonoscopy H/O vasectomy Hx of mastectomy Social History Household Members: None Housing: House Are you a primary medical care administrator to a significant other at home: No (ex ) Do you presently have visiting nurse or other home services: No Comment: leg brace Patient Tobacco Use Status: Former Tobacco user Tobacco use type: Smokeless Tobacco Substance Use Type: Marijuana service: Yes Physical Exam Eyes Other: Anicteric GI Other: Abdomen corpulent, soft, all wounds clean dry and intact healing very well Assessment & Plan Assessment & Plan (1) Status post laparoscopic cholecystectomy: Code(s): Z90.49 - Acquired absence of other specified parts of digestive tract Category: Medical Plan Patient has been given local instructions, and will otherwise follow-up p.r.n.. All questions answered. Coding Level of Care Code Global (34488) Diagnoses Status post laparoscopic cholecystectomy Z90.49
== END 2024-03-24 11:02 | disposition home or self-care (01) ==
PROVIDERS: PCP Internal Medicine; Referring Provider Internal Medicine; Visit Provider Surgery
DX: Z90.49 Acquired absence of other specified parts of digestive tract (principal)
CPT/HCPCS: 99024

== ENCOUNTER → 2024-03-24 10:32 | Outpatient (BNVA) | payer OTHER, SELFPAY | PROVIDERS: PCP Internal Medicine; Visit Provider Surgery | DX: Z09 Encounter for follow-up examination after completed treatment for conditions other than malignant neoplasm (principal); Z90.49 Acquired absence of other specified parts of digestive tract | CPT/HCPCS: 99212 ==